=== PATIENT | female | born 1960 | race Caucasian/White ===

== ENCOUNTER 2017-04-11 08:48 | Inpatient (IN) | payer BC ==
--- NOTE | 2017-04-11 09:53 | ED ---
General Adult HPI - General Chief complaint: Psychiatric Symptoms Stated complaint: Petition Time Seen by Provider: 04/11/17 08:57 Source: patient, RN notes reviewed Mode of arrival: ambulatory Limitations: no limitations - History of Present Illness Initial comments: 56-year-old female presents for evaluation of alcohol abuse. Patient was court- ordered to present to the emergency department for psychiatric evaluation. Her believes she is drinking to the point of hurting her self. She denies any suicidal or homicidal ideation. She states she just likes the feeling of having a drink. She does admit to drinking this morning, one alcohol- containing beverage. Patient has no significant past medical history. She also reports that she took a Seroquel this morning. No other drugs of abuse. - Related Data Home Medications Medication Instructions Recorded Confirmed DULoxetine HCL [Cymbalta] 60 mg PO DAILY 04/11/17 04/11/17 Multivitamins, Thera [Multivitamin 1 tab PO DAILY 04/11/17 04/11/17 (formulary)] QUEtiapine [SEROquel] 50 mg PO HS 04/11/17 04/11/17 Allergies Allergy/AdvReac Type Severity Reaction Status Date / Time No Known Allergies Allergy Verified 04/11/17 09:36 Review of Systems ROS Statement: Those systems with pertinent positive or pertinent negative responses have been documented in the HPI. ROS Other: All systems not noted in ROS Statement are negative. Past Medical History Past Medical History: No Reported History History of Any Multi-Drug Resistant Organisms: None Reported Additional Past Surgical History / Comment(s): D/C Past Psychological History: Depression Smoking Status: Former smoker Past Alcohol Use History: Abuse, Daily, Heavy Past Drug Use History: None Reported General Exam Limitations: no limitations General appearance: alert, in no apparent distress Head exam: Present: atraumatic, normocephalic Eye exam: Present: normal appearance, PERRL ENT exam: Present: normal exam, mucous membranes moist Neck exam: Present: normal inspection Respiratory exam: Present: normal lung sounds bilaterally. Absent: respiratory distress Cardiovascular Exam: Present: regular rate, normal rhythm GI/Abdominal exam: Present: soft. Absent: distended, tenderness Extremities exam: Present: normal inspection, full ROM, normal capillary refill. Absent: pedal edema Neurological exam: Present: alert, oriented X3. Absent: motor sensory deficit Psychiatric exam: Present: depressed. Absent: suicidal ideation Skin exam: Present: warm, dry, intact Course Vital Signs 04/11/17 08:56 Temperature 97.8 F Pulse Rate 101 H Respiratory 16 Rate Blood Pressure 141/91 O2 Sat by Pulse 96 Oximetry Medical Decision Making - Medical Decision Making 48 troponin female presenting for evaluation of alcohol abuse and depression. Patient was evaluated by [employer], she does meet inpatient criteria. Patient is agreeable with inpatient treatment, she signed herself in for psychiatric evaluation and treatment. - Lab Data Lab Results 04/11/17 Range/Units 09:12 Urine Opiates Screen Not Detected (NotDetected) Ur Oxycodone Screen Not Detected (NotDetected) Urine Methadone Screen Not Detected (NotDetected) Ur Propoxyphene Screen Not Detected (NotDetected) Ur Barbiturates Screen Not Detected (NotDetected) U Tricyclic Antidepress Detected H (NotDetected) Ur Phencyclidine Scrn Not Detected (NotDetected) Ur Amphetamines Screen Not Detected (NotDetected) U Methamphetamines Scrn Not Detected (NotDetected) U Benzodiazepines Scrn Not Detected (NotDetected) Urine Cocaine Screen Not Detected (NotDetected) U Marijuana (THC) Screen Not Detected (NotDetected) Disposition Clinical Impression: Depression, Alcohol abuse Disposition: ADMITTED IP TO THIS [facility] Condition: Stable Referrals: Stephanie Stock MD [Primary Care Provider] - 1-2 days Decision to Admit Reason: Admit from EC Decision Date: 04/11/17 Decision Time: 12:17
[2017-04-11] MEDS ORDERED: LORazepam 1 MG TAB PO STA (11:38)
[2017-04-11] MEDS ORDERED: MAGNESIUM HYDROXIDE 2,400 MG/10 ML CUP PO PRN (13:57)
[2017-04-11] MEDS ORDERED: ACETAMINOPHEN TAB 325 MG TAB PO PRN (13:57)
[2017-04-11] MEDS ORDERED: MAG HYDROX/AL HYDROX/SIMETH 30 ML CUP PO PRN (13:57)
[2017-04-11] MEDS ORDERED: THIAMINE 100 MG/ML 2 ML VIAL IM STA (14:03)
[2017-04-11 15:23] LABS: Appearance,Urine Cloudy (Clear); Bacteria,Urine Occasional /hpf; Bilirubin,Urine Negative (Negative); Glucose,Urine (UA) Negative (Negative); Ketones,Urine Negative (Negative); Leukocyte Esterase,Urine Negative (Negative); Mucus,Urine Occasional /hpf; Nitrite,Urine Negative (Negative); PH, Urine 5.5 (5.0-8.0); Particle Count 5544; Protein,Urine Trace (Negative); RBC,Urine 2 /hpf (0-5); Squamous Epithelial Cell,Urine 2 /hpf (0-4); UA Billing (MACRO vs. MICRO) MICRO; Urobilinogen,Urine <2.0 mg/dL (<2.0); WBC,Urine 3 /hpf (0-5)
[2017-04-11] MEDS: LORazepam 1 MG TAB PO PRN ×2 (15:23→21:36)
--- NOTE | 2017-04-11 16:15 | P.HP ---
Psychiatric H&P - . H&P Date: 04/11/17 History & Physical: Allergies Allergy/AdvReac Type Severity Reaction Status Date / Time No Known Allergies Allergy Verified 04/11/17 09:36 Vital Signs Temp 97.9 F 04/11/17 14:36 Pulse 111 H 04/11/17 14:36 Resp 15 04/11/17 14:36 BP 128/75 04/11/17 14:36 Pulse Ox 95 04/11/17 14:36 Intake & Output 04/10/17 04/11/17 04/11/17 18:59 06:59 18:59 Weight 56.699 kg Laboratory Last Values Urine Color Yellow 04/11/17 09:12 Urine Appearance Cloudy (Clear) H 04/11/17 09:12 Urine pH 5.5 (5.0-8.0) 04/11/17 09:12 Ur Specific [place] 1.020 (1.001-1.035) 04/11/17 09:12 Urine Protein Trace (Negative) H 04/11/17 09:12 Urine Glucose (UA) Negative (Negative) 04/11/17 09:12 Urine Ketones Negative (Negative) 04/11/17 09:12 Urine Blood Negative (Negative) 04/11/17 09:12 Urine Nitrite Negative (Negative) 04/11/17 09:12 Urine Bilirubin Negative (Negative) 04/11/17 09:12 Urine Urobilinogen <2.0 mg/dL (<2.0) 04/11/17 09:12 Ur Leukocyte Esterase Negative (Negative) 04/11/17 09:12 Urine RBC 2 /hpf (0-5) 04/11/17 09:12 Urine WBC 3 /hpf (0-5) 04/11/17 09:12 Ur Squamous Epith Cells 2 /hpf (0-4) 04/11/17 09:12 Urine Bacteria Occasional /hpf (None) H 04/11/17 09:12 Urine Mucus Occasional /hpf (None) H 04/11/17 09:12 Urine Opiates Screen Not Detected (NotDetected) 04/11/17 09:12 Ur Oxycodone Screen Not Detected (NotDetected) 04/11/17 09:12 Urine Methadone Screen Not Detected (NotDetected) 04/11/17 09:12 Ur Propoxyphene Screen Not Detected (NotDetected) 04/11/17 09:12 Ur Barbiturates Screen Not Detected (NotDetected) 04/11/17 09:12 U Tricyclic Antidepress Detected (NotDetected) H 04/11/17 09:12 Ur Phencyclidine Scrn Not Detected (NotDetected) 04/11/17 09:12 Ur Amphetamines Screen Not Detected (NotDetected) 04/11/17 09:12 U Methamphetamines Scrn Not Detected (NotDetected) 04/11/17 09:12 U Benzodiazepines Scrn Not Detected (NotDetected) 04/11/17 09:12 Urine Cocaine Screen Not Detected (NotDetected) 04/11/17 09:12 U Marijuana (THC) Screen Not Detected (NotDetected) 04/11/17 09:12 04/11/17 15:47 Identification: Patient is a 56-year-old female was brought to the emergency room by the police after her filed a petition for pickup order. Patient had recently been discharged from [facility] where she had been admitted for alcohol use disorder. History of Present Illness: Patient is a 56-year-old female who states that she was released from [facility] on March 05 and had been there for 2 weeks or so, she was admitted for her alcohol use. She states that she also has been diagnosed with depression and anxiety which began in the early 2006 was seen for counseling at [facility] for 1 year and then went to [facility] where she was also treated for depression and anxiety. She went there for a year and was tried on Paxil, Wellbutrin which caused increased agitation, Celexa, Zoloft which caused her to feel groggy and went for 1 year and discontinued her medications. In 2009 she was begun on Effexor by her primary care physician and was continued on 75 mg a day until 2016 when she was admitted to [facility]. She was also placed on BuSpar but didn't like it and stopped taking it. She states that several weeks prior to her admission to [facility] she was placed on Xanax 0.5 mg 4 times a day by her primary care physician. Patient states when she was admitted to [facility] in December for 9-10 days she was placed on an increased dose of Effexor which caused difficulties and was switched to Cymbalta and Antabuse. Patient states she gets discontinued the Antabuse so she could continue drinking and was eventually admitted to [facility]. Patient and Marck Cartwright was placed on Seroquel 50 mg at bedtime and Cymbalta 60 mg in the morning. She states after discharge she canceled her follow-up appointment and her had arranged an intake appointment at the [facility] for alcohol use disorder program and she canceled that as well. Patient states that she has been using alcohol since the age of 11, she states that she used to use alcohol when she would go out and green party when she was younger and prior to 2003 she used little alcohol. She states that in 2003 she began using alcohol to "take the edge off" and was drinking 1 pint of liquor a day since October 2016 prior to her admission to [facility] in December.She states since her discharge from [facility] she has been drinking 6-16 ounce 8% alcohol content beers a day. Patient states that it is easy for her to obtain alcohol as there are two stores with in 2[place]/2 miles of her house where she can buy liquor, she does drink and drive but states she doesn't drink much before she drives. Patient states she has never had any seizures when she has been withdrawing, she denies any delirium but states she does have the shakes and has had blackouts in the past. Patient states that she attends AA meetings on and off has no sponsor and has recently not been attending them. Patient states that she's had depression and anxiety in the past which she describes as panic attacks with an increased heart rate feeling dizzy and hyperventilating which led her to feel depressed as she was wondering when these began if she was going crazy so she could begin to ruminate about her symptoms. She denies any suicidal ideation or suicide attempts in the past and this is what caused her to seek treatment initially. She states she uses use the alcohol to take the edge off of her anxiety symptoms. She states that when she was depressed she was able to work part-time and forced herself to take care of the family. Currently she denies any suicidal ideation and states she' s been drinking throughout the day, her sleep has been disrupted and she is not been caring for her personal hygiene as she has in the past and states that she was cleaning the house but not cooking. She reports that her has difficulty with her alcohol use and is supportive of her trying to stop. Patient is not able to endorse currently or in the past psychotic symptoms, manic symptoms. She is able to endorse symptoms of panic attacks in the past with an increased heart rate, dizziness hyperventilating and states that these lead to her feeling depressed with decreased energy and interest in doing things and the need to force herself to take care of her family when the symptoms began in the early 1999. Past Psychiatric History: Patient was admitted to [place] in 2004 due to her alcohol use. She was admitted to [facility] and [facility] since December. She was treated with Effexor for the last 7 years by her primary care physician and was recently changed to Seroquel 50 mg and Cymbalta 60 mg a day at [facility]. Patient did not follow-up after discharge from [facility] on March 05 canceling her follow-up appointment. Patient received outpatient treatment at [facility] in the early 1999 for 1 year and then subsequently went to [facility] for depression and anxiety the next year. She was tried on multiple medications at that time, Paxil, Wellbutrin was increased agitation, Celexa, Zoloft with grogginess. She states she was tried on BuSpar with little effect. Past Medical/Surgical History:Patient denies any medical problems, states she is status post D&C, she fractured her nose when she was younger and has no ALLERGIES. Patient states that she is menopausal for the last 3 years. Home Medications Medication Instructions Recorded Confirmed DULoxetine HCL [Cymbalta] 60 mg PO DAILY 04/11/17 04/11/17 Multivitamins, Thera [Multivitamin 1 tab PO DAILY 04/11/17 04/11/17 (formulary)] QUEtiapine [SEROquel] 50 mg PO HS 04/11/17 04/11/17 Family History: Patient states that there is no psychiatric history in her family, her mother and father both had alcohol use disorder, her sister who is had an alcohol use disorder, paternal grandfather as well had an alcohol use disorder and she states her brother and other 2 sisters also had alcohol problems in the past or currently sober. She denies any completed suicides in the family. Social History: Patient was born and raised in [place] to parents, her mother is alive and her father is . She has 1 living brother and 2 sisters who are alive and one sister and she was the second oldest of 5 children. She completed high school and went on to college and he completed a bachelor's degree in business management. 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 She states she complained about other coworkers and feels she was let go for this reason. Patient states she's been for 32 years and has 3 children ages 31, 30 and 26. She lives with her and 26-year-old daughter. Her works as an sustain engineer. She denies any history of abuse. Substance Use History: Patient states she began using alcohol at the age of 11 until 2003 only occasionally used it on weekends or when she was at a green party. She states after 2003 she began to drink increasingly more and in October of this year began drinking 1 pint a day of liquor, she states prior to this admission she was drinking 6-16 ounce 8% alcohol content beers a day. Patient states that her longest sobriety was 2 years from [id number]. Patient states she used marijuana as a teen in her early 20s, she tried cocaine several times in college and states that occasionally she is used Vicodin with alcohol as an adult. She quit using tobacco products 4 years ago. Legal History: Patient denies any legal history. Mental Status:Appearance/Attitude: Patient is dressed in a hospital gown, makes good eye contact and is cooperative. Behavior: Patient does not display any psychomotor agitation or retardation. Speech/Language: Patient's speech is spontaneous and of normal volume and rhythm and she is coherent. Thought Process: Patient is goal-directed there is no evidence of circumstantial or tangential thought and she is not expressing any loose associations or flight of ideas. Thought Content: Patient denies any auditory or visual hallucinations and no tactile hallucinations and no paranoid or delusional ideation is elicited. Patient does report should she is feeling anxious, she states that she is not been caring for her personal hygiene at home has not been interested in cooking and states that she only "wanted to be left alone on myself with my drink". Patient states her sleep is been disruptive and she has not been eating well. Suicidal/Homicidal Ideation: Patient denies any suicidal or homicidal ideation at this time. Sensorium/Cognition: Patient is alert and oriented to person, place, and time and her memory is grossly intact. Mood/Affect: Patient's mood is depressed and her affect is slightly blunted. Insight/Judgement: Patient's insight and judgment into her use of alcohol is poor. Intellectual Functioning: Patient's intellectual functioning appears average. Strength/Weaknesses: Patient has a supportive , stable housing/lack of compliance with medication and follow-up Assessment: Patient presents after having had 2 prior admissions for alcohol use disorder for which she did not follow-up with aftercare. Patient was consistently taking her Cymbalta and Seroquel after her last discharge from [facility] canceled her follow-up appointment and canceled an intake appointment at the [facility] for alcohol use disorder. Patient has been treated in the past for depression and anxiety which she states began as panic attacks and then progressed to depression. Prior to her admission the patient states she was eating poorly as she was drinking, her sleep was disrupted she was not taking care of her personal hygiene and wanted to be left alone to sit on her sofa with her drink. Patient is denying any suicidal ideation at this time. Admission Diagnoses: alcohol-induced depressive disorder, Alcohol use disorder, severe; history of panic attacks Plan: Patient was admitted on a voluntary basis, routine laboratory studies were ordered as well as a medical consultation was requested. Patient was placed on routine observation as well as on Ativan as needed to treat her alcohol withdrawal symptoms. Patient was continued on her Cymbalta 60 mg in the morning and her Seroquel was discontinued. Patient was also ordered group and activity therapy and was encouraged to attend and participate. Patient and I discussed the use and side effects of Cymbalta as well as the use of Ativan to treat her withdrawal symptoms. Patient and I also discussed the use of acamprosate and naltrexone and she will consider one of these medications to decrease her urge to drink. Patient I also discussed the long-term consequences of alcohol use. Patient requires inpatient treatment to stabilize her mood, patient's also stated that patient was making suicidal comments at home. 09/14/17 16:14
[2017-04-11] MEDS ORDERED: THIAMINE 100 MG TAB PO SCH (17:00)
[2017-04-11] MEDS ORDERED: PHENobarbital 64.8 MG TAB PO ONE ×2 (18:03→22:03)
[2017-04-11] MEDS ORDERED: QUEtiapine 50 MG TAB PO SCH (21:00)
[2017-04-12] MEDS: LORazepam 1 MG TAB PO PRN ×4 (06:35→23:50)
[2017-04-12 08:38] LABS: Basophils # (A) 0.1 k/uL (0-0.2); Basophils % (A) 1 %; CH 33.9; CHCM 34.2; Eosinophils # (A) 0.1 k/uL (0-0.7); Eosinophils % (A) 1 %; HCT 43.8 % (34.0-46.0); HDW 2.51; HGB 14.9 gm/dL (11.4-16.0); Luc # (Auto) 0.16; Luc % (Auto) 2; Lymphocytes # (A) 1.2 k/uL (1.0-4.8); Lymphocytes % (A) 14 %; MCH 33.9 pg (25.0-35.0); MCV 99.5 fL (80.0-100.0); Mean Platelet Volume 6.5; Monocytes # (A) 0.4 k/uL (0-1.0); Monocytes % (A) 5 %; Neutrophils # (A) 6.8 k/uL (1.3-7.7); Neutrophils % (A) 78 %; RBC 4.41 m/uL (3.80-5.40); WBC 8.7 k/uL (3.8-10.6); WBC (Perox) 9.16
[2017-04-12 08:43] LABS: Anion Gap 10 mmol/L; Blood Urea Nitrogen 17 mg/dL (7-17); Carbon Dioxide 30 mmol/L (22-30); Chloride 97 mmol/L (98-107); Glucose 134 mg/dL (74-99); Potassium 3.8 mmol/L (3.5-5.1); Sodium 137 mmol/L (137-145)
[2017-04-12 08:44] LABS: ALT 202 U/L (9-52); AST 224 U/L (14-36); Alkaline Phosphatase 137 U/L (38-126); Calcium 9.2 mg/dL (8.4-10.2); Non-African American GFR(MDRD) >60 (>60 ml/min/1.73 sqM); Total Bilirubin 0.9 mg/dL (0.2-1.3); Total Protein 7.2 g/dL (6.3-8.2)
[2017-04-12] MEDS: DULoxetine HCL 60 MG CAPSULE.DR PO SCH (09:17)
--- NOTE | 2017-04-12 10:09 | P.PN ---
Progress Note - Text Interval History: Patient is a 56-year-old female who was admitted yesterday and was seen today and states that she was up and down most of the night not sleeping well and is feeling tired and shaky. She reports taking Ativan once this morning and feeling better after taking it. She also took her Cymbalta 60 mg this morning. Patient and I discussed her history of alcohol use and she states that she did begin at the age of 11 took a drink at that time and states that she liked the way it made her feel. Patient and I had discussed yesterday trying naltrexone or acamprosate and she is agreeable to a trial of naltrexone. Patient reports that she is still feeling depressed, tired poor sleep and at times anxious. She denies any current suicidal ideation. Patient has not been attending groups that she does not physically feel well enough to at this time she states. Mental Status: Appearance/Attitude: Patient is appropriately dressed, makes good eye contact and is cooperative. Behavior: Patient does not display any psychomotor agitation or retardation. Speech/Language: Patient's speech is spontaneous and of normal volume and rhythm and she is coherent. Thought Process: Patient is goal-directed, there is no evidence of loose associations flight of ideas and she is not circumstantial or tangential. Thought Content: Patient denies any auditory or visual hallucinations, no tactile hallucinations and no paranoid or delusional ideation was elicited. Patient reports her sleep is still disruptive, she feels tired with no motivation and continues to report shakiness at times. Patient states her appetite is fair and she continues to feel tired with little energy. Suicidal/Homicidal Ideation: Patient denies any current suicidal or homicidal ideation. Sensorium/Cognition: Patient is alert and oriented to person, place, and time and her memory is grossly intact. Mood/Affect: Patient's mood is depressed and her affect is slightly blunted. Insight/Judgement: Patient's insight and judgment are fair. Assessment: Patient is reporting some symptoms of withdrawal, her vital signs have been fairly stable however her liver enzymes are all elevated. Patient reports her sleep is still disruptive and she is still feeling depressed, tired and at times shaky. Patient is no longer expressing any suicidal ideation. Patient I had a long discussion regarding her family history of alcohol use disorder on both sides, she was able to discuss how she has been in denial for a number of years, was unable to understand her sister's use of alcohol and the long-term side effects of alcohol use. Plan: Patient will continue on Cymbalta 60 mg in the morning to target her depression and anxiety, she will continue on Ativan as needed for withdrawal symptoms. I will repeat her metabolic panel on Saturday to see if her liver enzymes have decreased, I suspect they are secondary to her alcohol use and at that time if they have decreased I will begin naltrexone. patient continues to require hospitalization to stabilize her mood.
[2017-04-12] MEDS: MULTIVITAMINS, THERA 1 EACH TAB PO SCH (11:58)
[2017-04-12] MEDS ORDERED: PHENobarbital 64.8 MG TAB PO SCH (14:03)
[2017-04-12] MEDS ORDERED: PHENobarbital 32.4 MG TAB PO SCH (14:03)
--- NOTE | 2017-04-12 18:16 | CONS ---
CONSULTATION REASON FOR CONSULTATION: Medical management of alcohol abuse and withdrawal symptoms. HISTORY OF PRESENTING ILLNESS: Ms. Mohr is a 56-year-old female with a known history of alcohol abuse. She was brought to the hospital for further evaluation of alcohol abuse and also psychiatric evaluation. Patient apparently has been drinking heavily for the past 2 months and has commented at home about trying to hurt herself. Patient's family brought her to the hospital. Otherwise, patient currently is more awake and oriented. Denied any complaints of chest pain or shortness of breath. No nausea, vomiting, or abdominal pain. The patient has been drinking more than a pint a day for the past 2 months. The patient does have a recent admission to an alcohol abuse program on March 05 and was discharged home. The patient already takes Seroquel for her depression. Otherwise, denied any smoking or drug abuse. No fever. No chills. No recent illnesses or sick contacts at home. REVIEW OF SYSTEMS: CONSTITUTIONAL: No fever. No chills. No weakness. No malaise. RESPIRATORY: No cough or sputum production. CARDIOVASCULAR: No chest pain. No shortness of breath. No leg swelling. No orthopnea. No PND. RESPIRATORY: No cough or sputum production. ABDOMEN: No nausea, vomiting, abdominal pain. GENITOURINARY: No dysuria or hematuria. NEUROLOGIC: Patient does have dizziness. No headache. No lightheadedness. No weakness. ENDOCRINE : No heat or cold intolerance. PSYCHIATRIC: Depressed. SKIN: Negative. MUSCULOSKELETAL: Negative. All other 14-point review of systems negative except for the above. PAST MEDICAL HISTORY: Alcohol abuse and depression. PAST SURGICAL HISTORY: D&C. FAMILY HISTORY: No family history of psychiatric problems or depression. The patient does have family history of alcohol abuse. SOCIAL HISTORY: Patient is a former smoker. Patient does not drink currently more than a pint a day. Denied any marijuana. Denied any drugs or IVDU. ALLERGIES: NO KNOWN DRUG ALLERGIES. HOME MEDICATIONS: Home medications include: 1. Cymbalta. 2. Multivitamin. 3. Seroquel. PHYSICAL EXAMINATION: A 56-year-old female lying in the bed comfortably. Awake, alert, oriented x3. She appears to be in no distress. VITAL SIGNS: Blood pressure is 117/69, pulse rate 94, respiration 16, temperature afebrile. Pulse ox is 97% on room air. HEENT: Atraumatic, normocephalic. NECK: Supple. No JVD. CVS EXAM: S1, S2 heard. No murmurs. No gallop. No rub. LUNGS: Bilateral air entry is present. No wheezing. No crackles Non-labored breathing. ABDOMEN: Soft, nontender. Bowel sounds are present. PLATE STACKER: Awake, alert and oriented x3. No focal deficit. EXTREMITIES: No edema. Pulses palpable bilaterally. No clubbing or cyanosis. PSYCHIATRIC: Cooperative. Denied any suicidal ideation now. Patient seems depressed. LABORATORY DATA: WBC 8.7, hemoglobin 14.9, platelets 381. Sodium 137, potassium 3.8, chloride 97, bicarb 30, BUN 17, creatinine 0.86. Blood sugar is 134. AST is 224, ALT 202, alkaline phosphatase 137, albumin 4.1. TSH 1.04, within normal limits. UA negative for infection. UDS is positive for tricyclic antidepressants. IMPRESSION: 1. Acute alcohol withdrawal symptoms. 2. Suicidal ideation/comments at home. 3. Severe alcohol abuse with more than a pint a day. 4. Recent admission to alcohol abuse program. 5. History of panic disorder. 6. Essential tremor. DISCUSSION AND PLAN: Patient will be continued on Ativan IV q.6 hourly p.r.n. for alcohol withdrawal symptoms. Replace electrolytes. Continue with the multivitamins and thiamine. Follow up closely. Continue with Cymbalta as per psychiatric recommendations. Will continue the current management. Further recommendations based on the clinical course. Thank you for your consult. MMVLADIMIR / KATHYN: [id number] /
[2017-04-12] MEDS ORDERED: IBUPROFEN 800 MG TAB PO PRN (21:43)
[2017-04-13] MEDS: LORazepam 1 MG TAB PO PRN ×3 (06:13→18:30)
[2017-04-13] MEDS: DULoxetine HCL 60 MG CAPSULE.DR PO SCH (08:18)
[2017-04-13] MEDS: MULTIVITAMINS, THERA 1 EACH TAB PO SCH (08:18)
[2017-04-13] MEDS: THIAMINE 100 MG TAB PO SCH (12:44)
--- NOTE | 2017-04-13 12:47 | P.PN ---
Progress Note - Text Interval history: The patient is found in her room she follows me to an interview room. The patient was admitted to the mental health unit on a pickup order. She is diagnosed with depression and alcohol use disorder. She is on Cymbalta 60 mg daily Ativan as needed to prevent alcohol withdrawal symptoms. It appears there is a plan to initiate naltrexone once the liver enzymes have begun to normalize. The patient speaks at length regarding her alcohol use and how it has caused dysfunction. Her insight into the situation seems to be improving. She has no questions or concerns regarding her medications. Mental status exam: The patient is alert she is dressed in her own clothing eye contact is appropriate. She does demonstrate some very mild psychomotor slowing. Speech is fluent spontaneous nonpressured. She reports that her mood is improving she is reporting no suicidal or homicidal ideation intent or plan. She is endorsing no hallucinations or specific delusions there is no evidence of psychosis. She does not appear hypomanic or manic. She demonstrates no tremor. She demonstrates no verbal or physical aggressiveness. She is oriented to person place and date. Affect remains constricted. Plan: Depression and anxiety alcohol use disorder, the patient will continue on her current medications labs are reviewed vital signs reviewed. We will continue to monitor her for safety she is encouraged to participate in the milieu. Lab work is ordered for Saturday regarding her liver enzymes.
[2017-04-14 06:31] VITALS: RESP 16
[2017-04-14] MEDS: LORazepam 1 MG TAB PO PRN ×3 (07:11→20:06)
[2017-04-14] MEDS: DULoxetine HCL 60 MG CAPSULE.DR PO SCH (08:46)
[2017-04-14] MEDS: THIAMINE 100 MG TAB PO SCH (12:13)
[2017-04-14] MEDS: MULTIVITAMINS, THERA 1 EACH TAB PO SCH (12:13)
--- NOTE | 2017-04-14 16:43 | P.PN ---
Progress Note - Text Interval history: The patient is found in the hallway she follows me to an interview room. She reports that her mood is been more tearful today and she feels more "melancholic". She does have a visit with her spouse last evening. She asks several questions about alcohol use disorder as a disease. She had received input from her spouse that his belief was she should simply choose not to use it. We discussed that she may have a genetic susceptibility and alcohol may affect her differently than others but he is correct that she does fact have a choice whether she uses or not. We discussed the possibility of her participating in an inpatient chemical dependency treatment and she we'll give that some consideration. We discussed the importance of participating in AA meetings and having a sponsor. We reviewed her labs specifically her elevated liver enzyme values. We again discussed naltrexone both in oral form and the injectable form. Mental status exam: The patient is alert she presents with adequate hygiene grooming she endorses a melancholic mood her affect is tearful she is cooperative. She is reporting no acute suicidal or homicidal ideation she endorses no auditory or visual hallucinations or specific delusions, there is no evidence of psychosis. She does not appear hypomanic or manic. She demonstrates no physical tremor. Insight and judgment improving. Thought process is free of any tangential thinking loose associations or flight of ideas. She demonstrates no verbal or physical aggressiveness. Hygiene grooming are good. She is wearing makeup today. Plan: The patient will continue on her current medication I will reduce the frequency of the Ativan to 3 times a day as needed. Vital signs are reviewed and they are within normal limits. She is encouraged to continue participating in the milieu we will continue to monitor her for safety. She is encouraged to give more consideration to inpatient chemical dependency treatment or at least outpatient AA meetings along with other outpatient mental health services.
[2017-04-15 08:27] LABS: ALT 155 U/L (9-52); AST 137 U/L (14-36); Alkaline Phosphatase 120 U/L (38-126); Anion Gap 6 mmol/L; Blood Urea Nitrogen 9 mg/dL (7-17); Calcium 8.7 mg/dL (8.4-10.2); Carbon Dioxide 28 mmol/L (22-30); Chloride 103 mmol/L (98-107); Glucose 93 mg/dL (74-99); Non-African American GFR(MDRD) >60 (>60 ml/min/1.73 sqM); Potassium 4.1 mmol/L (3.5-5.1); Sodium 137 mmol/L (137-145); Total Bilirubin 0.5 mg/dL (0.2-1.3); Total Protein 6.6 g/dL (6.3-8.2)
[2017-04-15] MEDS: DULoxetine HCL 60 MG CAPSULE.DR PO SCH (08:28)
[2017-04-15] MEDS: LORazepam 1 MG TAB PO PRN (08:28)
[2017-04-15] MEDS: NALTREXONE HCL 50 MG TAB PO SCH (09:21)
--- NOTE | 2017-04-15 10:19 | P.PN ---
Progress Note - Text Interval History: Patient is a 56-year-old female who is seen today she states that she is feeling guilty and remorseful about how she was acting over the summer in treating her family. She states that she is not feeling suicidal or depressed but is sad about her behavior patient states that she is sleeping and eating well. Patient states that she is tolerating the Cymbalta well and has continued to request Ativan for feeling anxious and not having withdrawal symptoms. Patient and I discussed starting naltrexone and she was agreeable with this. Patient states she is still contemplating whether she wants to go to inpatient rehab or outpatient therapy. Patient states that she had family visits this weekend and they went well. Mental Status: Appearance/Attitude: Patient is neatly dressed, good eye contact and is cooperative. Behavior: Patient does not display any psychomotor agitation or retardation. Speech/Language: Patient's speech is spontaneous and of normal volume and rhythm and she is coherent. Thought Process: Patient is goal-directed, there is no evidence of circumstantial or tangential thought and no loose associations or flight of ideas. Thought Content: Patient denies any auditory or visual hallucinations and no paranoid or delusional ideation was elicited. Patient states she is feeling guilty and remorseful about how she was acting this summer in treating her family. She states that she is anxious at times but is unable to define what that means. Patient states that she is no longer having difficulty eating or sleeping. Suicidal/Homicidal Ideation: Patient denies any current suicidal or homicidal ideation Sensorium/Cognition: Patient is alert and oriented to person, place, time and her memory is grossly intact. Mood/Affect: Patient's mood is tearful when discussing how she was acting the summer, she is pleasant and her affect is appropriate to her mood. Insight/Judgement: Patient's insight and judgment are fair. Assessment: Patient is no longer having any symptoms of withdrawal, her vital signs are stable and there is no evidence of any shaking or tremors. Patient is sleeping and eating well. Patient is no longer feeling suicidal or depressed. Patient is remorseful and feeling guilty about her behavior over the summer. Patient was agreeable to starting naltrexone but is still uncertain about whether she wants to go to inpatient alcohol rehab after her discharge from the hospital. Plan: Patient will continue on Cymbalta 60 mg to target her depression and anxiety and I will discontinue the Ativan as the patient is no longer having any withdrawal symptoms. Patient and I discussed the use and side effects of naltrexone and she will begin 50 mg today. Patient and I discussed considering inpatient alcohol rehab on the patient will consider it she is to have a family meeting today. Patient should be ready for discharge in the next several days.
[2017-04-15] MEDS: MULTIVITAMINS, THERA 1 EACH TAB PO SCH (12:09)
[2017-04-15] MEDS: THIAMINE 100 MG TAB PO SCH (12:09)
[2017-04-15] MEDS: MELATONIN 5 MG TABLET PO SCH (20:54)
[2017-04-16] MEDS: NALTREXONE HCL 50 MG TAB PO SCH (09:17)
[2017-04-16] MEDS: DULoxetine HCL 60 MG CAPSULE.DR PO SCH (09:18)
[2017-04-16] MEDS: THIAMINE 100 MG TAB PO SCH (12:10)
[2017-04-16] MEDS: MULTIVITAMINS, THERA 1 EACH TAB PO SCH (12:10)
[2017-04-16] MEDS: hydrOXYzine PAMOATE 25 MG CAP PO PRN ×2 (12:11→19:18)
--- NOTE | 2017-04-16 12:54 | P.PN ---
Progress Note - Text Interval History: Patient is a 56-year-old female who was seen this morning and states that she is not doing really well because she can't stop crying. She states that she is remorseful and sad about how she spent the summer and ignored her family. She states that she is not happy. Patient states that she couldn't get out of the cycle she was in at home and is upset that she was telling everyone to leave her alone. Patient states that when she gone to inpatient alcohol rehab in the past she had left after 1 or 2 weeks and it never completed the programs. Patient stated that she was feeling anxious and not attending groups because of her anxiety was questioning whether her anxiety was secondary to the ReVia. Patient states that she slept about 6-7 hours last night and her appetite is good and she denies any suicidal ideation. I spoke with the patient's at her request regarding his concerns about her aftercare as well as discussing whether ECT would be an appropriate treatment for her. Mental Status: Appearance/Attitude: Patient is appropriately and neatly dressed , makes good eye contact and is cooperative. Behavior: Patient was tearful throughout the early part of the interview due to her feeling remorseful and sad about how she spent the summer, she did not display any psychomotor agitation or retardation. Speech/Language: Patient's speech is spontaneous and of normal volume and rhythm and she is coherent. Thought Process: Patient is goal-directed and there is no evidence of loose associations or flight of ideas she is not circumstantial or tangential. Thought Content: Patient denies any auditory or visual hallucinations no delusions or paranoid ideation were elicited. Patient talks about feeling sad and remorseful about how she spent the summer and treated her family. She states she isn't happy in her sleep is not as restless it should be. She is reporting feeling anxious today and wonders if it secondary to the ReVia. Patient states that she is eating fine Suicidal/Homicidal Ideation: Patient denies any current suicidal or homicidal ideation. Sensorium/Cognition: Patient is alert and oriented to person, place, time and her memory is grossly intact. Mood/Affect: Patient's mood is tearful, sad and her affect is appropriate. Insight/Judgement: Patient's insight and judgment are fair. Assessment: Patient is now reporting feeling more anxious and wonders if it secondary to the ReVia, she is also tearful about how she spent the summer and how she treated her family. Patient and I discussed at length that while she is using alcohol benefits of the antidepressant medication are greatly reduced. Patient was encouraged to continue with the ReVia to see if the anxiety that she thinks is secondary to will decrease the longer she is on the medication. Patient remains ambivalent about returning to inpatient alcohol rehab programs, concerned about the length of time she will be absent from her family. Plan: Patient will continue on Cymbalta 60 mg in the morning and ReVia 50 mg a day as well as melatonin 5 mg at bedtime. Patient was also given Vistaril 25 mg 3 times a day as needed for her anxiety. Patient was encouraged to consider returning to a rehab program and completing. Patient and I discussed discharge plans for tomorrow. Patient and I discussed that the full benefit of the Cymbalta would not be reached until she had been on it for more than a month without using any alcohol and she was encouraged to continue the ReVia to see if the anxiety that she felt secondary to it would decrease.
[2017-04-16] MEDS: MELATONIN 5 MG TABLET PO SCH (20:34)
[2017-04-17 06:08] VITALS: BP 124/66; PULSE 77; TEMP 97.9
[2017-04-17] MEDS: DULoxetine HCL 60 MG CAPSULE.DR PO SCH (08:55)
[2017-04-17] MEDS: hydrOXYzine PAMOATE 25 MG CAP PO PRN (08:56)
--- NOTE | 2017-04-17 09:44 | P.DS ---
Providers Date of admission: 04/11/17 13:46 Expected date of discharge: 04/17/17 Attending physician: Gale Harvey MD Consults: 04/11/17 13:57 Consult Physician Routine Consulting Provider: Franky Moffett Consult Reason/Comments: follow up H & P Do you want consulting provider notified?: Yes Primary care physician: Stephanie Stock [facility] Course: Discharge Diagnoses: Alcohol-induced depressive disorder, alcohol use disorder, severe; other specified anxiety disorder Reason for Admission: Patient is a 56-year-old female was brought to the emergency room by the police after her filed a petition or pickup order. Patient had recently been discharged from [facility] where she had been admitted for alcohol use disorder. Patient states that she was released from [facility] on March 05 and had been there for less than 2 weeks and was admitted for her alcohol use. She states that she has been diagnosed with depression and anxiety in the past which began in early 2006 and she was being seen at [facility] for 1 year and then went to [facility]. Patient has been treated in the past and was admitted to [facility] in 2017. She was there in December for 9-10 days and she was switched to Cymbalta which she has continued to this point. She was also begun on Antabuse which she discontinued so she could continue drinking and was eventually admitted to [facility]. Patient upon discharge disc continued her follow-up treatment as well as canceling an intake appointment at the [facility]. Patient states that she began using alcohol at the age of 11 and was using it socially until 2003 when she began using alcohol to "take the edge off" and was drinking 1 pint of liquor a day since October 2016. She stated that since her discharge from [facility] she has been drinking 6-16 ounce 8% alcohol content beers a day. Patient does drink and drive, to usually the liquor store which is 2-1/2 miles away from her home. Patient denied any seizures or delirium during her withdrawals in the past but has had blackouts. Patient also described depression and anxiety, she states that she began having panic attacks at some point in the past with increased heart rate, feeling dizzy and hyperventilating which led her to feel depressed and she was wondering if she was going crazy. She states when she uses alcohol he takes the edge off her anxiety symptoms. Patient has also recently lost her job. Patient states at home she wanted to just be "left alone on the couch with her drink". She is not been caring for her personal hygiene, not cooking and states she was drinking throughout the day. Patient has been tried on multiple medications in the past, Celexa, Zoloft , Paxil, Wellbutrin and BuSpar. She was most recently treated with Cymbalta 60 mg. Patient was admitted to [place] in 2004 due to her alcohol use, and 2 admissions in since December at [facility]. Hospital Course: Patient was admitted on a voluntary basis, routine laboratory studies were performed, medical consultation was obtained the patient was placed on routine precautions. Patient was also ordered group and activity therapy and was continued on her Cymbalta 60 mg in the morning. Patient was also on Ativan for alcohol withdrawal symptoms. Patient was begun on ReVia 50 mg a day and she stated that she had increasing anxiety after she had been on the medication for several days. Patient was also placed on Vistaril 25 mg 3 times a day as needed to control her anxiety. Patient was also given melatonin 5 mg at bedtime to assist with her sleep. Patient was able to state that her alcohol use had been at a problem and she was discussing various rehabilitation programs. Patient wished the ReVia to be discontinued due to the anxiety that it been causing she did not feel that the melatonin had been beneficial for her sleep. Patient reported that she was feeling numb, the Vistaril at been helpful for her anxiety and she declined a trial of a Campral stating that she was going to an inpatient long-term rehab facility in [place]. Patient denied suicidal ideation during her hospital stay but was expressing her remorse and shame about her behavior over the summer and the way she been treating her family.patient was sleeping fairly well and eating well and was no longer having any symptoms of withdrawal and felt that she was ready for discharge. Discharge Mental Status:Appearance/Attitude: Patient is appropriately dressed, makes good eye contact and is cooperative. Behavior: Patient does not display any psychomotor agitation or retardation. Speech/Language: Patient's speech is spontaneous, normal volume and rhythm and she is coherent. Thought Process: Patient is goal-directed, is no evidence of circumstantial or tangential thought and no loose associations or flight of ideas Thought Content: Patient denies any auditory or visual hallucinations and no delusions or paranoid ideation were elicited. Patient reports that she is feeling empty today, feels that the ReVia has caused her to have some anxiety and wishes it to be discontinued. Patient states that she is sleeping fairly well and her appetite is good. Suicidal/Homicidal Ideation: Patient denied any current suicidal or homicidal ideation. Sensorium/Cognition: Patient is alert and oriented to person, place, and time and her memory is grossly intact. Mood/Affect: Patient's mood is slightly depressed and her affect is appropriate. Insight/Judgement: Patient's insight and judgment are fair. Laboratory Last Values WBC 8.7 k/uL (3.8-10.6) 04/12/17 08:14 RBC 4.41 m/uL (3.80-5.40) 04/12/17 08:14 Hgb 14.9 gm/dL (11.4-16.0) 04/12/17 08:14 Hct 43.8 % (34.0-46.0) 04/12/17 08:14 MCV 99.5 fL (80.0-100.0) 04/12/17 08:14 MCH 33.9 pg (25.0-35.0) 04/12/17 08:14 MCHC 34.0 g/dL (31.0-37.0) 04/12/17 08:14 RDW 13.0 % (11.5-15.5) 04/12/17 08:14 Plt Count 381 k/uL (150-450) 04/12/17 08:14 Neutrophils % 78 % 04/12/17 08:14 Lymphocytes % 14 % 04/12/17 08:14 Monocytes % 5 % 04/12/17 08:14 Eosinophils % 1 % 04/12/17 08:14 Basophils % 1 % 04/12/17 08:14 Neutrophils # 6.8 k/uL (1.3-7.7) 04/12/17 08:14 Lymphocytes # 1.2 k/uL (1.0-4.8) 04/12/17 08:14 Monocytes # 0.4 k/uL (0-1.0) 04/12/17 08:14 Eosinophils # 0.1 k/uL (0-0.7) 04/12/17 08:14 Basophils # 0.1 k/uL (0-0.2) 04/12/17 08:14 Sodium 137 mmol/L (137-145) 04/15/17 07:30 Potassium 4.1 mmol/L (3.5-5.1) 04/15/17 07:30 Chloride 103 mmol/L (98-107) 04/15/17 07:30 Carbon Dioxide 28 mmol/L (22-30) 04/15/17 07:30 Anion Gap 6 mmol/L 04/15/17 07:30 BUN 9 mg/dL (7-17) 04/15/17 07:30 Creatinine 0.65 mg/dL (0.52-1.04) 04/15/17 07:30 Est GFR (MDRD) Af Amer >60 (>60 ml/min/1.73 sqM) 04/15/17 07:30 Est GFR (MDRD) Non-Af >60 (>60 ml/min/1.73 sqM) 04/15/17 07:30 Glucose 93 mg/dL (74-99) 04/15/17 07:30 Calcium 8.7 mg/dL (8.4-10.2) 04/15/17 07:30 Total Bilirubin 0.5 mg/dL (0.2-1.3) 04/15/17 07:30 AST 137 U/L (14-36) H 04/15/17 07:30 ALT 155 U/L (9-52) H 04/15/17 07:30 Alkaline Phosphatase 120 U/L (38-126) 04/15/17 07:30 Total Protein 6.6 g/dL (6.3-8.2) 04/15/17 07:30 Albumin 3.7 g/dL (3.5-5.0) 04/15/17 07:30 TSH 1.040 mIU/L (0.465-4.680) 04/12/17 08:14 Urine Color Yellow 04/11/17 09:12 Urine Appearance Cloudy (Clear) H 04/11/17 09:12 Urine pH 5.5 (5.0-8.0) 04/11/17 09:12 Ur Specific [place] 1.020 (1.001-1.035) 04/11/17 09:12 Urine Protein Trace (Negative) H 04/11/17 09:12 Urine Glucose (UA) Negative (Negative) 04/11/17 09:12 Urine Ketones Negative (Negative) 04/11/17 09:12 Urine Blood Negative (Negative) 04/11/17 09:12 Urine Nitrite Negative (Negative) 04/11/17 09:12 Urine Bilirubin Negative (Negative) 04/11/17 09:12 Urine Urobilinogen <2.0 mg/dL (<2.0) 04/11/17 09:12 Ur Leukocyte Esterase Negative (Negative) 04/11/17 09:12 Urine RBC 2 /hpf (0-5) 04/11/17 09:12 Urine WBC 3 /hpf (0-5) 04/11/17 09:12 Ur Squamous Epith Cells 2 /hpf (0-4) 04/11/17 09:12 Urine Bacteria Occasional /hpf (None) H 04/11/17 09:12 Urine Mucus Occasional /hpf (None) H 04/11/17 09:12 Urine Opiates Screen Not Detected (NotDetected) 04/11/17 09:12 Ur Oxycodone Screen Not Detected (NotDetected) 04/11/17 09:12 Urine Methadone Screen Not Detected (NotDetected) 04/11/17 09:12 Ur Propoxyphene Screen Not Detected (NotDetected) 04/11/17 09:12 Ur Barbiturates Screen Not Detected (NotDetected) 04/11/17 09:12 U Tricyclic Antidepress Detected (NotDetected) H 04/11/17 09:12 Ur Phencyclidine Scrn Not Detected (NotDetected) 04/11/17 09:12 Ur Amphetamines Screen Not Detected (NotDetected) 04/11/17 09:12 U Methamphetamines Scrn Not Detected (NotDetected) 04/11/17 09:12 U Benzodiazepines Scrn Not Detected (NotDetected) 04/11/17 09:12 Urine Cocaine Screen Not Detected (NotDetected) 04/11/17 09:12 U Marijuana (THC) Screen Not Detected (NotDetected) 04/11/17 09:12 Risk Assessment: Patient's risk for suicidal behavior is moderate due to her history of alcohol use, anxiety and depression Discharge Plan: Patient states that she is completed and over the phone intake assessment at a [facility] in [facility] and her will be driving her there today after discharge. Patient will begin prescriptions for Cymbalta 60 mg in the morning and Vistaril 25 mg 3 times a day as needed for anxiety, she states that she does not wish to continue the ReVia and does not want a prescription for melatonin. Patient was encouraged to complete the program. Patient did not wish to try Campral as she states that this program has a holistic approach. Patient was encouraged to remain sober. Patient Condition at Discharge: Stable Plan - Discharge Summary New Discharge Prescriptions: New hydrOXYzine PAMOATE [Vistaril] 25 mg PO Q8HR PRN #20 cap PRN Reason: Anxiety Thiamine [Vitamin B-1] 100 mg PO DAILY@1200 #28 tab Continue Multivitamins, Thera [Multivitamin (formulary)] 1 tab PO DAILY DULoxetine HCL [Cymbalta] 60 mg PO DAILY #14 Discontinued QUEtiapine [SEROquel] 50 mg PO HS Discharge Medication List Multivitamins, Thera [Multivitamin (formulary)] 1 tab PO DAILY 04/11/17 [History ] DULoxetine HCL [Cymbalta] 60 mg PO DAILY #14 04/17/17 [Rx] Thiamine [Vitamin B-1] 100 mg PO DAILY@1200 #28 tab 04/17/17 [Rx] hydrOXYzine PAMOATE [Vistaril] 25 mg PO Q8HR PRN #20 cap 04/17/17 [Rx] Follow up Appointment(s)/Referral(s): intake, intake [Other] - 04/17/17 2:00 pm Stephanie Stock MD [Primary Care Provider] - 1-2 days Patient Instructions/Handouts: Depression (GEN), Abuse of Alcohol (GEN), Suicide Prevention for Adults (GEN) Activity/Diet/Wound Care/Special Instructions: Activity and diet as tolerated. Avoid the use of street drugs and alcohol. Take all medications as prescribed. When you are in need of refills on your medications please contact your medical provider and/or outpatient psychiatrist to have this done. Please go to scheduled outpatient appointment for aftercare treatment. If symptoms return or become worse call the crisis line at [phone] and/or go to the nearest emergency room for an evaluation. Discharge Disposition: HOME SELF-CARE
[2017-04-17] MEDS: NALTREXONE HCL 50 MG TAB PO SCH (09:57)
[2017-04-17] MEDS: MULTIVITAMINS, THERA 1 EACH TAB PO SCH (11:42)
[2017-04-17] MEDS: THIAMINE 100 MG TAB PO SCH (11:42)
== END 2017-04-17 12:02 | disposition home or self-care (01) | DRG 897 ==
LOC: EC 08:48 → 3MHU 13:46
PROVIDERS: ADMIT Psychiatry & Neurology Psychiatry; ATTEND Psychiatry & Neurology Psychiatry
DX: F10.24 Alcohol dependence with alcohol-induced mood disorder (principal); F10.239 Alcohol dependence with withdrawal, unspecified; F41.0 Panic disorder [episodic paroxysmal anxiety]; G25.0 Essential tremor; Z79.899 Other long term (current) drug therapy; Z56.0 Unemployment, unspecified; Z87.891 Personal history of nicotine dependence; Z81.1 Family history of alcohol abuse and dependence
CPT/HCPCS: 80053; 80306; 81001; 82075; 84443; 85025; 99285

== ENCOUNTER 2017-10-07 15:24 | Inpatient (IN) | payer BC ==
--- NOTE | 2017-10-07 17:06 | ED ---
General Adult HPI - General Chief complaint: Psychiatric Symptoms Stated complaint: mental health/detox Time Seen by Provider: 10/07/17 16:30 Source: patient, family, RN notes reviewed Mode of arrival: ambulatory Limitations: no limitations - History of Present Illness Initial comments: Patient is a pleasant 56-year-old female presenting to the emergency department with concerns for alcohol problems. Patient has been drinking heavily again for the past couple of weeks. Patient believes she has had approximately a pint of vodka as well as a couple ounces, last drink was around noon. Patient admits to feeling depressed. Patient admits to having thoughts of going to sleep and not waking up. Patient does not have a specific suicidal plan. No homicidal thoughts. Patient denies any hallucinations. No physical complaints. Patient requests to allow her son to go to by her alcohol and bring it into the hospital. - Related Data Home Medications Medication Instructions Recorded Confirmed Multivitamins, Thera [Multivitamin 1 tab PO DAILY 04/11/17 10/08/17 (formulary)] Previous Rx's Medication Instructions Recorded Thiamine [Vitamin B-1] 100 mg PO DAILY@1200 #28 tab 04/17/17 OXcarbazepine [Trileptal] 300 mg PO BID 30 Days #60 tab 10/11/17 QUEtiapine [SEROquel] 25 mg PO HS 30 Days #30 tab 10/11/17 Allergies Allergy/AdvReac Type Severity Reaction Status Date / Time No Known Allergies Allergy Verified 10/08/17 03:11 Review of Systems ROS Statement: Those systems with pertinent positive or pertinent negative responses have been documented in the HPI. ROS Other: All systems not noted in ROS Statement are negative. Constitutional: Denies: fever Eyes: Denies: eye pain ENT: Denies: ear pain Respiratory: Denies: cough Cardiovascular: Denies: chest pain Endocrine: Denies: fatigue Gastrointestinal: Denies: abdominal pain Genitourinary: Denies: dysuria Musculoskeletal: Denies: back pain Skin: Denies: rash Neurological: Denies: headache Psychiatric: Reports: depression Past Medical History Past Medical History: No Reported History Additional Past Medical History / Comment(s): ETOH abuse. History of Any Multi-Drug Resistant Organisms: None Reported Past Surgical History: No Surgical Hx Reported Additional Past Surgical History / Comment(s): D/C, colonoscopy, septal surgery Past Anesthesia/Blood Transfusion Reactions: No Reported Reaction Past Psychological History: Depression Smoking Status: Former smoker Past Alcohol Use History: Abuse, Daily, Heavy Past Drug Use History: None Reported - Past Family History Father Family Medical History: CVA/TIA Additional Family Medical History / Comment(s): Father of septicemia at the age of 69yrs. He had had a CVA and then had complications from that. Mother Family Medical History: No Reported History Additional Family Medical History / Comment(s): Mother is healthy and is 81 yrs old. General Exam Limitations: no limitations General appearance: alert, in no apparent distress Head exam: Present: atraumatic Eye exam: Present: normal appearance, PERRL, EOMI ENT exam: Present: normal oropharynx Neck exam: Present: normal inspection Respiratory exam: Present: normal lung sounds bilaterally Cardiovascular Exam: Present: regular rate, normal rhythm GI/Abdominal exam: Present: soft. Absent: tenderness Extremities exam: Present: normal inspection Neurological exam: Present: alert Psychiatric exam: Present: depressed Skin exam: Present: normal color Course Vital Signs 10/07/17 10/07/17 15:36 22:18 Temperature 98.1 F 98.1 F Pulse Rate 95 106 H Respiratory 18 18 Rate Blood Pressure 131/78 158/95 O2 Sat by Pulse 97 97 Oximetry Medical Decision Making - Lab Data Result diagrams: 10/08/17 09:19 10/08/17 09:19 Lab Results 10/07/17 10/07/17 Range/Units 17:11 17:11 Urine Color Light Yellow Urine Appearance Clear (Clear) Urine pH 5.0 (5.0-8.0) Ur Specific [place] 1.008 (1.001-1.035) Urine Protein Negative (Negative) Urine Glucose (UA) Negative (Negative) Urine Ketones Negative (Negative) Urine Blood Negative (Negative) Urine Nitrite Negative (Negative) Urine Bilirubin Negative (Negative) Urine Urobilinogen <2.0 (<2.0) mg/dL Ur Leukocyte Esterase Negative (Negative) Urine Opiates Screen Not Detected (NotDetected) Ur Oxycodone Screen Not Detected (NotDetected) Urine Methadone Screen Not Detected (NotDetected) Ur Propoxyphene Screen Not Detected (NotDetected) Ur Barbiturates Screen Not Detected (NotDetected) U Tricyclic Antidepress Not Detected (NotDetected) Ur Phencyclidine Scrn Not Detected (NotDetected) Ur Amphetamines Screen Not Detected (NotDetected) U Methamphetamines Scrn Not Detected (NotDetected) U Benzodiazepines Scrn Not Detected (NotDetected) Urine Cocaine Screen Not Detected (NotDetected) U Marijuana (THC) Screen Not Detected (NotDetected) Disposition Clinical Impression: Depression, Alcohol abuse Disposition: TRANSFER TO PSYCH HOSP/UNIT
[2017-10-07 17:28] LABS: Amphetamine Screen,Urine Not Detected (NotDetected); Barbiturate Screen,Urine Not Detected (NotDetected); Benzodiazepines Screen,Urine Not Detected (NotDetected); Cocaine Screen,Urine Not Detected (NotDetected); Methadone Screen, Urine Not Detected (NotDetected); Opiate Screen,Urine Not Detected (NotDetected); Oxycodone Screen, Urine Not Detected (NotDetected); Phencyclidine Screen,Urine Not Detected (NotDetected); Tricyclic Antidepressant,Urine Not Detected (NotDetected); Urn Cannabinoid Scrn Not Detected (NotDetected)
[2017-10-07] MEDS ORDERED: LORazepam 1 MG TAB PO STA (20:34)
[2017-10-07] MEDS ORDERED: ACETAMINOPHEN TAB 325 MG TAB PO PRN (22:26)
[2017-10-07] MEDS ORDERED: MAGNESIUM HYDROXIDE 2,400 MG/10 ML CUP PO PRN (22:26)
[2017-10-07] MEDS ORDERED: MAG HYDROX/AL HYDROX/SIMETH 30 ML CUP PO PRN (22:26)
[2017-10-07] MEDS ORDERED: LORazepam 2 MG/ML INJ IM PRN (22:32)
[2017-10-07 22:44] LABS: Appearance,Urine Clear (Clear); Bilirubin,Urine Negative (Negative); Blood,Urine Negative (Negative); Color,Urine Light Yellow; Glucose,Urine (UA) Negative (Negative); Ketones,Urine Negative (Negative); Leukocyte Esterase,Urine Negative (Negative); Nitrite,Urine Negative (Negative); Protein,Urine Negative (Negative); Specific Gravity,Urine 1.008 (1.001-1.035); Urobilinogen,Urine <2.0 mg/dL (<2.0)
[2017-10-07] MEDS ORDERED: MELATONIN 5 MG TABLET PO SCH (22:45)
[2017-10-07] MEDS: MELATONIN 3 MG TABLET PO SCH (23:40)
--- NOTE | 2017-10-08 00:26 | P.MDCNMH ---
History of Present Illness H&P Date: 10/08/17 Chief Complaint: Excessive drinking Is a 56-year-old female with past medical history of alcoholism who came to MRSA department complaining that she's been drinking excessively and actively seeking help. Patient states that lately should be having stressful situations and been feeling depressed and anxious, with poor appetite and difficulty sleeping, decreased desire for usual activities. No suicidal thoughts or ideation. She started drinking again excessively almost daily up to a pint of vodka. Patient reports previously being hospitalized and going to alcohol rehab programs. She denies any history of seizures or delirium tremens or any significant withdrawals. Denies any history of liver problems. She did have elevated liver enzymes in March of last year. She denies any other medical problems including diabetes or hypertension. Her last drink was yesterday. She does not report any significant cravings or feeling shaky or anxious or sweating. Review of Systems Constitutional: Reports poor appetite, Denies fatigue, Denies fever, Denies lethargy, Denies malaise, Denies night sweats Eyes: denies blurred vision Ears, nose, mouth and throat: Denies dysphagia, Denies headache, Denies odynophagia Cardiovascular: Denies chest pain, Denies dyspnea on exertion, Denies edema, Denies high blood pressure, Denies leg edema, Denies lightheadedness Respiratory: Denies cough, Denies cough with sputum, Denies dyspnea Gastrointestinal: Reports loss of appetite, Denies abdominal pain, Denies bloating, Denies change in bowel habits, Denies diarrhea, Denies dyspepsia, Denies jaundice Genitourinary: Denies difficulty voiding, Denies dysuria Musculoskeletal: Denies hot joints, Denies morning stiffness, Denies muscle cramps, Denies muscle weakness Integumentary: Denies pruritus, Denies rash Neurological: Denies balance difficulties, Denies change in mentation, Denies change in speech, Denies confusion, Denies double vision, Denies gait dysfunction, Denies headaches Psychiatric: Reports anxiety, Reports change in appetite, Reports change in sleep habits, Reports depression, Reports difficulty concentrating Endocrine: Denies cold intolerance Past Medical History Past Medical History: No Reported History Additional Past Medical History / Comment(s): ETOH abuse. History of Any Multi-Drug Resistant Organisms: None Reported Past Surgical History: No Surgical Hx Reported Additional Past Surgical History / Comment(s): D/C, colonoscopy, septal surgery Past Anesthesia/Blood Transfusion Reactions: No Reported Reaction Past Psychological History: Depression Smoking Status: Former smoker Past Alcohol Use History: Abuse, Daily, Heavy Past Drug Use History: None Reported - Past Family History Father Family Medical History: CVA/TIA Additional Family Medical History / Comment(s): Father of septicemia at the age of 69yrs. He had had a CVA and then had complications from that. Mother Family Medical History: No Reported History Additional Family Medical History / Comment(s): Mother is healthy and is 81 yrs old. Medications and Allergies Home Medications Medication Instructions Recorded Confirmed Type Multivitamins, Thera [Multivitamin 1 tab PO DAILY 04/11/17 10/07/17 History (formulary)] Thiamine [Vitamin B-1] 100 mg PO DAILY@1200 #28 tab 04/17/17 10/07/17 Rx Melatonin 10 mg PO HS 10/07/17 10/07/17 History Protriptyline HCl [Vivactil] 5 mg PO BID 10/07/17 10/07/17 History Allergies Allergy/AdvReac Type Severity Reaction Status Date / Time No Known Allergies Allergy Verified 10/07/17 17:33 Physical Exam Vitals: Vital Signs Temp Pulse Resp BP Pulse Ox 10/07/17 22:18 98.1 F 106 H 18 158/95 97 10/07/17 15:36 98.1 F 95 18 131/78 97 Intake and Output 10/07/17 10/07/17 10/08/17 14:59 22:59 06:59 Other: Weight 56.699 kg Patient Weight 10/08/17 06:59 Weight 56.699 kg - Constitutional General appearance: cooperative, no no acute distress - EENT Eyes: anicteric sclerae, EOMI, PERRLA - Neck Neck: no lymphadenopathy, normal ROM, no thyromegaly - Respiratory Respiratory: bilateral: CTA, negative: diminished, dullness, rales, rhonchi, wheezing - Cardiovascular Rhythm: regular Heart sounds: normal: S1, S2 - Gastrointestinal General gastrointestinal: no hepatomegaly, normal bowel sounds, soft, no tenderness - Integumentary Integumentary: no rash - Neurologic Neurologic: CNII-XII intact - Musculoskeletal Musculoskeletal: gait normal - Psychiatric Psychiatric: A&O x's 3 Cranial Nerve Examination - Cranial Nerves Cranial Nerve II- Optic: Intact Cranial Nerve III- Oculomotor: Intact Cranial Nerve IV- Trochlear: Intact Cranial Nerve V- Trigeminal: Intact Cranial Nerve - Abducens: Intact Cranial Nerve VII- Facial: Intact Cranial Nerve VIII- Auditory: Intact Cranial Nerve IX- Glossopharyngeal: Intact Cranial Nerve X- Vagus: Intact Cranial Nerve XI- Accessory: Intact Cranial Nerve XII- Hypoglossal: Intact Assessment and Plan (1) Elevated liver enzymes Narrative/Plan: Noted on previous admission CMP is pending We will reevaluate once results available If still elevated we will consider obtaining ultrasound and viral hepatitis screening as well Current Visit: No Status: Acute Priority: Medium Code(s): R74.8 - ABNORMAL LEVELS OF OTHER SERUM ENZYMES SNOMED Code(s): 732761399 (2) Alcohol abuse Narrative/Plan: Monitor for withdrawal loss CIWA Vitamin supplementation Current Visit: Yes Status: Acute Priority: High Code(s): F10.10 - ALCOHOL ABUSE, UNCOMPLICATED SNOMED Code(s): 08606841 (3) Depression Narrative/Plan: Per psychiatry Current Visit: No Status: Acute Priority: High Code(s): F32.9 - MAJOR DEPRESSIVE DISORDER, SINGLE EPISODE, UNSPECIFIED SNOMED Code(s): 78094449
[2017-10-08] MEDS: LORazepam 1 MG TAB PO PRN ×3 (02:02→20:53)
[2017-10-08 03:11] VITALS: BMI 21.2
[2017-10-08] MEDS: MULTIVITAMINS, THERA 1 EACH TAB PO SCH (08:29)
[2017-10-08 09:52] LABS: Albumin 4.6 g/dL (3.5-5.0); Calcium 9.8 mg/dL (8.4-10.2); Potassium 4.3 mmol/L (3.5-5.1); Total Bilirubin 0.9 mg/dL (0.2-1.3); Total Protein 7.8 g/dL (6.3-8.2)
[2017-10-08 10:16] LABS: Basophils % (A) 1 %; Eosinophils % (A) 0 %; HCT 43.2 % (34.0-46.0); HGB 14.6 gm/dL (11.4-16.0); Lymphocytes % (A) 22 %; MCH 32.3 pg (25.0-35.0); MCHC 33.8 g/dL (31.0-37.0); MCV 95.5 fL (80.0-100.0); Mean Platelet Volume 6.5; Monocytes # (A) 0.4 k/uL (0-1.0); Monocytes % (A) 4 %; Neutrophils # (A) 6.2 k/uL (1.3-7.7); Neutrophils % (A) 71 %; Platelet Count 306 k/uL (150-450); RBC 4.52 m/uL (3.80-5.40); RDW 12.1 % (11.5-15.5); WBC 8.7 k/uL (3.8-10.6)
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
[2017-10-08] MEDS: OXcarbazepine 300 MG TAB PO SCH ×2 (11:47→20:49)
[2017-10-08] MEDS: THIAMINE 100 MG TAB PO SCH (11:47)
[2017-10-08] MEDS: MELATONIN 3 MG TABLET PO SCH (20:51)
[2017-10-08] MEDS: QUEtiapine 100 MG TAB PO SCH (20:51)
[2017-10-09] MEDS: MULTIVITAMINS, THERA 1 EACH TAB PO SCH (08:31)
[2017-10-09] MEDS: OXcarbazepine 300 MG TAB PO SCH ×2 (08:31→20:41)
[2017-10-09] MEDS: LORazepam 1 MG TAB PO PRN (08:33)
--- NOTE | 2017-10-09 12:05 | P.PN ---
Progress Note - Text Progress Note Date: 10/09/17 Patient is rather sleepy today. She took melatonin in addition to Seroquel last night and got a few doses of Ativan. She agreed to discontinue her melatonin and not to take Ativan unless she has a real withdrawal symptoms from alcohol so that she can be awake and alert. She continues to deny suicidal thoughts and did not show any suicidal behavior. This is a white ambulatory female with good hygiene. He is somewhat sleepy but she is able to engage in good conversation, alert etc. Her mood varies from euthymic to cheerful. Affect is appropriate to thought content. Denies suicidal and homicidal ideas. Denies hallucinations and delusional thinking. She is well oriented with good memory concentration etc. Plan: Discontinue melatonin. Patient agreed not to take Ativan unless she is having actual withdrawal symptoms. Consider lowering Seroquel to 50 mg at bedtime if she still feels until about 4:00 this afternoon.
[2017-10-09] MEDS: THIAMINE 100 MG TAB PO SCH (12:09)
[2017-10-09] MEDS: QUEtiapine 100 MG TAB PO SCH (20:41)
[2017-10-10] MEDS: MULTIVITAMINS, THERA 1 EACH TAB PO SCH (08:34)
[2017-10-10] MEDS: OXcarbazepine 300 MG TAB PO SCH ×2 (08:34→20:51)
--- NOTE | 2017-10-10 10:50 | P.PN ---
Progress Note - Text Progress Note Date: 10/10/17 Patient was seen for a follow-up examination. She does not feel as sleepy as she did yesterday. She said she did not take when necessary Ativan but she still feels a little sluggish and asked if her Seroquel could be changed or decreased to 50 mg she was taking in the past. After much discussion about the pros and cons of changing to another medication and decreasing it to 50 mg at bedtime, it was agreed to decrease Seroquel to 75 mg at bedtime. She had several questions about alcoholism and bipolar disorder, antidepressants for bipolar disorder etc. and etc. She was counseled in detail about symptoms of bipolar disorder, comorbid conditions, the research recommendations for bipolar disorder treatment etc. This is a white ambulatory female with good hygiene. She is polite and friendly and cooperative. She does not show any psychomotor agitation or retardation. Her speech is spontaneous relevant and goal-directed. Her mood is euthymic to cheerful and affect is appropriate. She denies suicidal and homicidal ideas. She denies hallucinations and delusional thinking. She is well oriented with adequate memory concentration general fund of knowledge etc. Plan: Continue Trileptal, decrease Seroquel to 75 mg at bedtime and continue therapies.
[2017-10-10] MEDS ORDERED: THIAMINE 100 MG TAB ONE (12:00)
[2017-10-10] MEDS: THIAMINE 100 MG TAB PO SCH (13:35)
[2017-10-10] MEDS: LORazepam 1 MG TAB PO PRN (20:53)
[2017-10-10] MEDS ORDERED: QUEtiapine 25 MG TAB PO SCH (21:00)
[2017-10-11 07:03] VITALS: BP 128/80; PULSE 88; RESP 14; TEMP 98
[2017-10-11] MEDS: THIAMINE 100 MG TAB PO SCH (08:56)
[2017-10-11] MEDS: MULTIVITAMINS, THERA 1 EACH TAB PO SCH (08:56)
[2017-10-11] MEDS: OXcarbazepine 300 MG TAB PO SCH (08:56)
[2017-10-11] MEDS: LORazepam 1 MG TAB PO PRN ×2 (08:58→16:35)
--- NOTE | 2017-10-11 09:33 | P.DS ---
Providers Date of admission: 10/07/17 22:11 Expected date of discharge: 10/11/17 Attending physician: Tawana Parker Consults: 10/07/17 22:26 Consult Physician Routine Consulting Provider: Carlos Morton Consult Reason/Comments: H&P for mental health admission Do you want consulting provider notified?: Yes Primary care physician: Stephanie Stock [facility] Course: Patient had physical examination psychiatric evaluation and psychosocial evaluation. After psychiatric examination patient agreed to try Trileptal and Seroquel for mood stabilization. She was receiving Ativan for withdrawal symptoms/anxiety. She attended her group and other therapies. She socialized with peers and interacted with staff members appropriately. She reported of being too sleepy on 100 mg Seroquel. She was counseled and agreed to decrease or stop her Ativan and also stop melatonin. The next day she continued to report of being sleepy and not feeling levelheaded on Seroquel so it was decreased to 75 mg at bedtime. Even today she continues to report of not feeling well in her head and it was agreed to stop it. However after further discussion she wanted to stay on 25 mg at bedtime and to discuss with her outpatient psychiatrist to consider other mood stabilizers if she continues to have problems with Seroquel. Condition on discharge this is a white ambulatory female with good hygiene. She is polite friendly and cooperative. She does not show any psychomotor agitation or retardation. Her speech is spontaneous relevant and goal- directed. Her mood is euthymic to cheerful and affect is appropriate. She continues to deny suicidal and homicidal thoughts. She also denies hallucinations and delusional thinking. She is well oriented with good memory concentration etc. her insight and judgment have improved. Diagnosis on discharge: Bipolar 1 disorder most recent episode unspecified F 31.9 Alcohol use disorder severe F 10.20 NKDA Hyper lipidemia Elevated liver enzymes. Patient was advised to take her medications as prescribed, not to drink alcohol or use drugs, seek outpatient counseling regarding alcohol and coping skills in addition to psychiatric follow-up, not to drive or operate missionary if she feels sleepy, to call her therapist if she gets suicidal thoughts and to go to ER if she cannot get hold of her therapist. She agreed with all these recommendations. Plan - Discharge Summary Discharge Rx Participant: No New Discharge Prescriptions: New OXcarbazepine [Trileptal] 300 mg PO BID 30 Days #60 tab QUEtiapine [SEROquel] 25 mg PO HS 30 Days #30 tab Continue Multivitamins, Thera [Multivitamin (formulary)] 1 tab PO DAILY Thiamine [Vitamin B-1] 100 mg PO DAILY@1200 #28 tab Discontinued Protriptyline HCl [Vivactil] 5 mg PO BID Melatonin 10 mg PO HS Discharge Medication List Multivitamins, Thera [Multivitamin (formulary)] 1 tab PO DAILY 04/11/17 [History ] Thiamine [Vitamin B-1] 100 mg PO DAILY@1200 #28 tab 04/17/17 [Rx] OXcarbazepine [Trileptal] 300 mg PO BID 30 Days #60 tab 10/11/17 [Rx] QUEtiapine [SEROquel] 25 mg PO HS 30 Days #30 tab 10/11/17 [Rx] Follow up Appointment(s)/Referral(s): Geovany Morocho Dr [Other] - 10/17/17 5:30 am (10/17/17 at 5:30pm with Dr. Morocho) Stephanie Stock MD [Primary Care Provider] - 1-2 days
[2017-10-11] MEDS ORDERED: QUEtiapine 25 MG TAB PO SCH (21:00)
== END 2017-10-11 17:56 | disposition home or self-care (01) | DRG 885 ==
LOC: EC 15:24 → 3MHU 22:11
PROVIDERS: ADMIT Psychiatry & Neurology Psychiatry; ATTEND Psychiatry & Neurology Psychiatry
DX: F31.9 Bipolar disorder, unspecified (principal); E78.5 Hyperlipidemia, unspecified; F10.20 Alcohol dependence, uncomplicated; F41.9 Anxiety disorder, unspecified; Z82.3 Family history of stroke; Z82.49 Family history of ischemic heart disease and other diseases of the circulatory system; Z87.891 Personal history of nicotine dependence
CPT/HCPCS: 80053; 80061; 80306; 81003; 82075; 83036; 84443; 85025; 99285

== ENCOUNTER 2021-07-12 11:25 | Inpatient (IN) | payer BC ==
--- NOTE | 2021-07-12 12:21 | ED ---
General Adult HPI - General Chief complaint: Psychiatric Symptoms Stated complaint: Mental Health Time Seen by Provider: 07/12/21 11:37 Source: EMS Mode of arrival: EMS - History of Present Illness Initial comments: Dictation was produced using [employer] dictation software. please excuse any grammatical, word or spelling errors. Chief Complaint: 60-year-old female presents emergency department for alcoholism and depression History of Present Illness: Patient is 60-year-old female she has past medical history of alcoholism and alcohol withdrawal. She's been drinking large amounts of alcohol over the last several days. She takes as much as 2 L of vodka on a daily basis. She has had rales in the past. She states that she is very depressed. States that she is doesn't see remaining of living anymore. She's been also drinking mouthwash and anything that she get her hands on with alcohol-containing substances. She has no medical complaints currently. is at the bedside who also helps provide history present illness. Last alcoholic intake was morning. The ROS documented in this emergency department record has been reviewed and confirmed by me. Those systems with pertinent positive or negative responses have been documented in the HPI. All other systems are other negative and/or noncontributory. PHYSICAL EXAM: General Impression: Alert and oriented x3, not in acute distress HEENT: Normocephalic atraumatic, extra-ocular movements intact, pupils equal and reactive to light bilaterally, mucous membranes moist. Cardiovascular: Heart regular rate and rhythm Chest: Able to complete full sentences, no retractions, no tachypnea Abdomen: abdomen soft, non-tender, non-distended, no organomegaly Musculoskeletal: Pulses present and equal in all extremities, no peripheral edema Motor: no focal deficits noted Neurological: CN II-XII grossly intact, no focal motor or sensory deficits noted Skin: Intact with no visualized rashes Psych: Normal affect and mood ED course: 60-year-old female presents to the emergency department for depression, perhaps suicidal ideation with no specific plan and acute alcohol intoxication. Vital signs upon arrival shows findings within acceptable limits. Laboratory evaluation obtained. Mild stress leukocytosis 11.7. Metabolic panel shows findings within acceptable limits. Alcohol level is 179. Patient engages shows signs of withdrawal. Given patient's size and O much she drinks was con cerned the patient could have worsening withdrawals. Patient is agreeable for admission. Every 4 hour CiWA scale ordered. Patient also ordered for variable dose Ativan. EKG interpretation: Ventricular rate default 2, sinus tachycardia, FL interval 142, QRS 86, QTC 4:30. No FL prolongation, no QTC prolongation, no ST or T-wave changes noted. Overall, this EKG is unremarkable - Related Data Home Medications Medication Instructions Recorded Confirmed Multivitamins, Thera [Multivitamin 1 tab PO DAILY 04/11/17 10/08/17 (formulary)] Previous Rx's Medication Instructions Recorded Thiamine [Vitamin B-1] 100 mg PO DAILY@1200 #28 tab 04/17/17 OXcarbazepine [Trileptal] 300 mg PO BID 30 Days #60 tab 10/11/17 QUEtiapine [SEROquel] 25 mg PO HS 30 Days #30 tab 10/11/17 Allergies Allergy/AdvReac Type Severity Reaction Status Date / Time No Known Allergies Allergy Verified 07/12/21 11:47 Review of Systems ROS Statement: Those systems with pertinent positive or pertinent negative responses have been documented in the HPI. ROS Other: All systems not noted in ROS Statement are negative. Past Medical History Past Medical History: No Reported History Additional Past Medical History / Comment(s): ETOH abuse. History of Any Multi-Drug Resistant Organisms: None Reported Past Surgical History: No Surgical Hx Reported Additional Past Surgical History / Comment(s): D/C, colonoscopy, septal surgery Past Anesthesia/Blood Transfusion Reactions: No Reported Reaction Past Psychological History: Anxiety, Depression Smoking Status: Former smoker Past Alcohol Use History: Abuse, Daily, Heavy Past Drug Use History: None Reported - Past Family History Father Family Medical History: CVA/TIA Additional Family Medical History / Comment(s): Father of septicemia at the age of 69yrs. He had had a CVA and then had complications from that. Mother Family Medical History: No Reported History Additional Family Medical History / Comment(s): Mother is healthy and is 81 yrs old. Course Vital Signs 07/12/21 11:32 Temperature 97.2 F L Pulse Rate 101 H Respiratory 18 Rate Blood Pressure 173/91 O2 Sat by Pulse 95 Oximetry Medical Decision Making - Lab Data Result diagrams: 07/12/21 12:23 07/12/21 12:23 Lab Results 07/12/21 07/12/21 Range/Units 12:23 12:23 WBC 11.7 H (3.8-10.6) k/uL RBC 4.51 (3.80-5.40) m/uL Hgb 14.9 (11.4-16.0) gm/dL Hct 44.7 (34.0-46.0) % MCV 99.0 (80.0-100.0) fL MCH 33.1 (25.0-35.0) pg MCHC 33.4 (31.0-37.0) g/dL RDW 13.3 (11.5-15.5) % Plt Count 425 (150-450) k/uL MPV 6.7 Neutrophils % 81 % Lymphocytes % 13 % Monocytes % 4 % Eosinophils % 0 % Basophils % 1 % Neutrophils # 9.5 H (1.3-7.7) k/uL Lymphocytes # 1.5 (1.0-4.8) k/uL Monocytes # 0.5 (0-1.0) k/uL Eosinophils # 0.0 (0-0.7) k/uL Basophils # 0.1 (0-0.2) k/uL Sodium 136 L (137-145) mmol/L Potassium 4.3 (3.5-5.1) mmol/L Chloride 94 L (98-107) mmol/L Carbon Dioxide 26 (22-30) mmol/L Anion Gap 16 mmol/L BUN 19 H (7-17) mg/dL Creatinine 0.68 (0.52-1.04) mg/dL Est GFR (CKD-EPI)AfAm >90 (>60 ml/min/1.73 sqM) Est GFR (CKD-EPI)NonAf >90 (>60 ml/min/1.73 sqM) Glucose 138 H (74-99) mg/dL Calcium 8.8 (8.4-10.2) mg/dL Total Bilirubin 0.4 (0.2-1.3) mg/dL AST 39 H (14-36) U/L ALT 30 (4-34) U/L Alkaline Phosphatase 127 H (38-126) U/L Total Protein 7.6 (6.3-8.2) g/dL Albumin 4.5 (3.5-5.0) g/dL Salicylates <1.0 mg/dL Acetaminophen <10.0 ug/mL Serum Alcohol 179 mg/dL Disposition Clinical Impression: Alcohol withdrawal Disposition: ADMITTED IP TO THIS HOSP Condition: Fair Referrals: Stephanie Stock MD [Primary Care Provider] - 1-2 days
[2021-07-12] MEDS ORDERED: LORazepam 2 MG/ML INJ IV PRN (12:31)
[2021-07-12] MEDS ORDERED: THIAMINE 100 MG/ML 2 ML VIAL IM STA (12:31)
[2021-07-12] MEDS: LORazepam 2 MG/ML INJ IV PRN ×3 (13:05→18:07)
[2021-07-12 13:21] LABS: Basophils # (A) 0.1 k/uL (0-0.2); Basophils % (A) 1 %; Eosinophils % (A) 0 %; HCT 44.7 % (34.0-46.0); HGB 14.9 gm/dL (11.4-16.0); Lymphocytes # (A) 1.5 k/uL (1.0-4.8); Lymphocytes % (A) 13 %; MCH 33.1 pg (25.0-35.0); MCHC 33.4 g/dL (31.0-37.0); Mean Platelet Volume 6.7; Monocytes # (A) 0.5 k/uL (0-1.0); Monocytes % (A) 4 %; Neutrophils # (A) 9.5 k/uL (1.3-7.7); Neutrophils % (A) 81 %; Platelet Count 425 k/uL (150-450); RBC 4.51 m/uL (3.80-5.40); RDW 13.3 % (11.5-15.5); WBC 11.7 k/uL (3.8-10.6)
[2021-07-12 13:34] LABS: ALT 30 U/L (4-34); AST 39 U/L (14-36); Acetaminophen <10.0 ug/mL; African American GFR (CKD) >90 (>60 ml/min/1.73 sqM); Albumin 4.5 g/dL (3.5-5.0); Alkaline Phosphatase 127 U/L (38-126); Anion Gap 16 mmol/L; Blood Urea Nitrogen 19 mg/dL (7-17); Calcium 8.8 mg/dL (8.4-10.2); Carbon Dioxide 26 mmol/L (22-30); Chloride 94 mmol/L (98-107); Glucose 138 mg/dL (74-99); Non-African American GFR(CKD) >90 (>60 ml/min/1.73 sqM); Potassium 4.3 mmol/L (3.5-5.1); Salicylate <1.0 mg/dL; Sodium 136 mmol/L (137-145); Total Bilirubin 0.4 mg/dL (0.2-1.3); Total Protein 7.6 g/dL (6.3-8.2)
[2021-07-12 13:56] LABS: Alcohol 179 mg/dL
[2021-07-12] MEDS ORDERED: NALOXONE 0.4 MG/ML 1 ML VIAL IV PRN (14:20)
[2021-07-12] MEDS: SODIUM CHLORIDE 0.9% 1,000 ML IV SCH (15:24)
[2021-07-12] MEDS: THIAMINE 100 MG TAB PO SCH (17:59)
[2021-07-12] MEDS ORDERED: LACTULOSE 20 GM/30 ML CUP PO PRN (18:04)
[2021-07-12] MEDS ORDERED: ACETAMINOPHEN TAB 325 MG TAB PO PRN (18:04)
[2021-07-12] MEDS ORDERED: CALCIUM CARBONATE 500 MG CHEWABLE PO PRN (18:04)
--- NOTE | 2021-07-12 21:40 | P.HPIM ---
History of Present Illness H&P Date: 07/12/21 Chief Complaint: Excess alcohol intake This is a 60-year-old patient who follows Dr. Stephanie Stock. Patient long- standing history of drinking alcohol. She is also going to [place] in the past. Some short periods of being sober. But basically has been drinking alcohol for a protracted period. She drinks called boys and also does walk up. She now presents to the ER feeling that she might kill herself. Drinking alcohol. Feels a little depressed and low. Does not eat too well. Is somewhat constipated as she does not eat well. Appetite is not good. Tired rundown. Has a history of bipolar 1. Patient's somewhat drowsy. When able to give some history. Review of systems: GEN.: Tired EYES: None HEENT: None NECK: None RESPIRATORY: None CARDIOVASCULAR: None GASTROINTESTINAL: Constipation GENITOURINARY: None MUSCULOSKELETAL: None LYMPHATICS: None HEMATOLOGICAL: None PSYCHIATRY: Depressed NEUROLOGICAL: None Social history: . Patient smoked for about 40 years about 15 years ago. 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 Family history: Father had stroke Physical examination: VITAL SIGNS: 97.2, 120, 18, 168/86, 95% room air GENERAL: BMI 22.3, laying in bed, tired slightly lethargic, spider nevi. EYES: Pupils equal. Conjunctiva normal. HEENT: External appearance of nose and ears normal, oral cavity grossly normal. NECK: JVD not raised; masses not palpable. HEART: First and second heart sounds are normal; no edema. LUNGS: Respiratory rate normal; decreased breath sounds. ABDOMEN: Soft, nontender, liver spleen not palpable, no masses palpable. PSYCH: Lethargic but able to answer simple questions. Depressed appearingl. NEUROLOGICAL: Cranial nerves grossly intact; no facial asymmetry, power and sensation grossly intact. LYMPHATICS: No lymph nodes palpable in the axilla and neck INVESTIGATIONS, reviewed in the clinical context: White count 9.7 hemoglobin 14.9 platelets 425 sodium 136 potassium 4.3 BUN 19 creatinine 0.68 blood glucose 138 Serum osmolality 332 AST 39 ALT 30 Salicylates less than 1 acetaminophen less than 10 serum alcohol 179 Coronavirus [PCR]: Noninfected EKG tracing personally reviewed by me-sinus rhythm. Rate 102 Assessment and plan: -Acute alcohol intoxication Patient has a sitter -Alcohol use disorder -Early alcohol withdrawal Valium 2 mg 3 times a day. CIWA scale. -Bipolar 1 with severe depression Psychiatry consulted. Patient has a sitter. -Alcoholic hepatitis Follow-up with GI outpatient Valium 2 mg daily. CIWA scale. Sitter. Consult psychiatry. D5 0.45 IV fluids. Discussed with patient. Past Medical History Past Medical History: No Reported History Additional Past Medical History / Comment(s): ETOH abuse. History of Any Multi-Drug Resistant Organisms: None Reported Past Surgical History: No Surgical Hx Reported Additional Past Surgical History / Comment(s): D/C, colonoscopy, septal surgery Past Anesthesia/Blood Transfusion Reactions: No Reported Reaction Past Psychological History: Anxiety, Depression Smoking Status: Former smoker Past Alcohol Use History: Abuse, Daily, Heavy Past Drug Use History: None Reported - Past Family History Father Family Medical History: CVA/TIA Additional Family Medical History / Comment(s): Father of septicemia at the age of 69yrs. He had had a CVA and then had complications from that. Mother Family Medical History: No Reported History Additional Family Medical History / Comment(s): Mother is healthy and is 81 yrs old. Medications and Allergies Home Medications Medication Instructions Recorded Confirmed Type PARoxetine [Paxil] 20 mg PO DAILY 07/12/21 07/12/21 History Progesterone, Micronized 200 mg PO HS 07/12/21 07/12/21 History [Progesterone] Allergies Allergy/AdvReac Type Severity Reaction Status Date / Time No Known Allergies Allergy Verified 07/12/21 14:49 Physical Exam Vitals: Vital Signs Temp Pulse Pulse Resp BP BP Pulse Ox 07/12/21 20:00 98.2 F 105 H 18 148/84 94 L 07/12/21 18:55 126 H 18 168/86 95 07/12/21 11:32 97.2 F L 101 H 18 173/91 95 Intake and Output 07/12/21 07/12/21 07/12/21 06:59 14:59 22:59 Other: Weight 58.967 kg Results CBC & Chem 7: 07/12/21 12:23 07/12/21 12:23 Labs: Abnormal Lab Results - Last 24 Hours (Table) 07/12/21 07/12/21 Range/Units 12:23 12:23 WBC 11.7 H (3.8-10.6) k/uL Neutrophils # 9.5 H (1.3-7.7) k/uL Sodium 136 L (137-145) mmol/L Chloride 94 L (98-107) mmol/L BUN 19 H (7-17) mg/dL Glucose 138 H (74-99) mg/dL Osmolality 332 H* (280-301) mosm/kg AST 39 H (14-36) U/L Alkaline Phosphatase 127 H (38-126) U/L
[2021-07-12] MEDS: METOPROLOL TARTRATE 12.5 MG TAB PO SCH (22:17)
[2021-07-12] MEDS: PROGESTERONE MICRONIZED 200 MG PO SCH (22:19)
[2021-07-12] MEDS: DEXTROSE 5%-0.45% NACL 1,000 ML IV SCH (22:21)
[2021-07-12] MEDS: diazePAM 2 MG TAB PO SCH (22:54)
[2021-07-13] MEDS: LORazepam 2 MG/ML INJ IV PRN ×2 (03:50→10:19)
[2021-07-13] MEDS: diazePAM 2 MG TAB PO SCH ×3 (08:04→22:23)
[2021-07-13] MEDS: METOPROLOL TARTRATE 12.5 MG TAB PO SCH ×3 (08:04→22:23)
[2021-07-13] MEDS: THIAMINE 100 MG TAB PO SCH ×2 (08:04→18:07)
[2021-07-13] MEDS: ENOXAPARIN 40 MG/0.4 ML SYRINGE SQ SCH (08:05)
[2021-07-13] MEDS: PARoxetine 20 MG TAB PO SCH (08:05)
[2021-07-13] MEDS: DEXTROSE 5%-0.45% NACL 1,000 ML IV SCH ×2 (08:06→15:34)
[2021-07-13 12:57] VITALS: RESP 16
[2021-07-13] MEDS ORDERED: FLUoxetine HCL 10 MG CAP PO STA (13:43)
[2021-07-13] MEDS ORDERED: GABAPENTIN 300 MG CAP PO STA (13:44)
--- NOTE | 2021-07-13 14:04 | P.CN ---
Psychiatric Consult - . Consult date: 07/13/21 Consult:: 07/13/21 14:03 IDENTIFYING DATA: This patient is a , employed, 60-year-old female with a significant history of depression, anxiety, and alcohol use disorder presented to the hospital for excessive alcohol intake. HISTORY OF PRESENT ILLNESS: The patient presented to the hospital on 07/12/2021, brought to the emergency department with her by her side for chief complaint of excessive alcohol use. The patient was started on Valium for management of acute alcohol withdrawal and due to her significant psychiatric history with bipolar disorder and severe depression, psychiatry has been consulted and the patient was placed with a sitter. Serum alcohol was noted to be 179. Patient also presented with elevated transaminases. Upon evaluation by the psychiatric provider, the patient reports significant history of depression, anxiety, and alcohol use disorder. She reports that she decided to come to the hospital after "going on a hart for the last week." She reports that she has been drinking up to 2 pints of hard liquor per day. The patient reports that she goes through periods where she would go on a hart and periods of sobriety. She reports that during these periods of sobriety she would have the occasional alcoholic beverage. She expresses some acute stressors including her [id number] passing away a couple weeks ago. The patient reports that she has been dealing with increasing panic attacks. She describes these as periods where she would feel an impending sense of doom, palpitations, perspiration, and fear of the next attack. She reports that this is pushed her to increase her alcohol use. In regards to depressive symptoms, the patient is vehemently denying any suicidal or homicidal ideation, intention, and/or plan. She is not reporting any auditory or visual hallucinations. The patient denies any significant symptoms of depression although when she was on her hart she did report decreased appetite and difficulty with sleep. The patient does express that she is uncertain whether she actually wants to or not when she was thinking about conceiving mouthwash fourth alcohol content. In regards to trauma, the patient is not reporting any significant history of trauma. She reports no history of physical or sexual abuse. She denies any history of emotional neglect. PAST PSYCHIATRIC HISTORY: Patient has a history of depression, anxiety, and al cohol use disorder. And has been on numerous psychotropic medications including Wellbutrin, Celexa, Zoloft, BuSpar, Cymbalta, Trileptal, and Seroquel. She was most recently on a regimen of Paxil 10 mg daily prior to this admission. The patient has had 3 inpatient psychiatric admissions in the past for depression and anxiety in the context of heavy alcohol use. The patient reports no current outpatient psychiatric follow-up. The patient reports no prior attempts at suicide in the past. PAST MEDICAL HISTORY: Past Medical History: No Reported History Additional Past Medical History / Comment(s): ETOH abuse. History of Any Multi-Drug Resistant Organisms: None Reported Past Surgical History: No Surgical Hx Reported Additional Past Surgical History / Comment(s): D/C, colonoscopy, septal surgery Past Anesthesia/Blood Transfusion Reactions: No Reported Reaction Past Psychological History: Anxiety, Depression Smoking Status: Former smoker Past Alcohol Use History: Abuse, Daily, Heavy Past Drug Use History: None Reported ALLERGIES: NO KNOWN DRUG ALLERGIES. CHEMICAL DEPENDENCY HISTORY: Patient reports that she has been drinking up to 2 pints of liquor per day for the past week. Aside from alcohol, the patient does not endorse any tobacco or illicit drug use. FAMILY PSYCHIATRIC/SUBSTANCE USE HISTORY: The patient's mother and father were both alcoholics. She reports that her mother has significant history of anxiety. SOCIAL HISTORY: Patient is currently for 36 years with her . She has 3 adult children. She is currently employed and works at an [employer] in [facility]. She lives in [place] with her . She denies any legal issues, service, or scientologist affiliation. MENTAL STATUS EXAM: General Appearance: Patient appears to be stated age is alert, pleasant, and cooperative. Patient appears to have fair hygiene and grooming wearing hospital gown with fair eye contact. Behavior: Patient is calmly lying in bed without any agitated behavior. Speech: Patient's speech is fluent and nonpressured. Mood/Affect: Patient reports their mood is "anxious", affect is congruent but constricted in range Suicidality/Homicidality: Patient denies having any suicidal or homicidal ideation intent or plan. Perceptions: Patient denies any visual hallucinations and denies any auditory hallucinations Though content/process: There is no evidence of any delusional thought content and thought process is linear and goal-directed. Memory and concentration: AOX3, grossly intact for the purposes of this session. 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 Agree with Valium for management of alcohol withdrawal. -At this time patient DOES NOT meet criteria for inpatient psychiatric admission. -Would recommend the following medication changes/additions: We will start Prozac 30 mg by mouth daily for management of depression/anxiety/panic disorder We will start gabapentin 300 mg by mouth 3 times a day for off label use for anxiety and alcohol use disorder. -The risks, benefits, and treatment alternatives were discussed with the patient in detail. Patient verbally consented to the medications. -Discontinue one-to-one sitter -Recommend social work consult to provide patient with 3 sources for outpatient substance abuse counseling as well as to set up outpatient psychiatric follow- up. -Psychiatry will continue to follow the patient while she is currently admitted. Otherwise, the patient is psychiatrically cleared for discharge. 07/13/21 14:03
[2021-07-13 14:06] LABS: Urine Alcohol Positive (Negative)
[2021-07-13] MEDS: SODIUM CHLORIDE 0.9% 1,000 ML IV SCH (15:29)
--- NOTE | 2021-07-13 16:55 | P.PN ---
Progress Note - Text Progress Note Date: 07/13/21 Chief Complaint: Excess alcohol intake This is a 60-year-old patient who follows Dr. Stephanie Stock. Patient long- standing history of drinking alcohol. She is also going to [place] in the past. Some short periods of being sober. But basically has been drinking a lcohol for a protracted period. She drinks called boys and also does walk up. She now presents to the ER feeling that she might kill herself. Drinking alcohol. Feels a little depressed and low. Does not eat too well. Is somewhat constipated as she does not eat well. Appetite is not good. Tired rundown. Has a history of bipolar 1. Patient's somewhat drowsy. When able to give some history. July 13: Feeling better. Did get of the bathroom. Did eat breakfast and lunch. Seen by psychiatry. Put on Prozac. Sitter discontinued. Discussed length with the patient about options when leaving from here. Patient is agreeable to take naltrexone. Also talked about disulfiram. She was to get over the [place] break with family. Cutback Valium to 1 mg 3 times a day. DC Ativan. Review of systems: Was done for constitutional, cardiovascular, GI, pulmonary. relevant finding as above Active Medications Acetaminophen (Acetaminophen Tab 325 Mg Tab) 650 mg PO Q6HR PRN PRN Reason: Mild Pain or Fever > 100.5 Calcium Carbonate/Glycine (Calcium Carbonate 500 Mg Chewable) 1,000 mg PO Q4HR PRN PRN Reason: Dyspepsia Diazepam (Diazepam 2 Mg Tab) 2 mg PO TID [facility] Last Admin: 07/13/21 15:34 Dose: 2 mg Documented by: Enoxaparin Sodium (Enoxaparin 40 Mg/0.4 Ml Syringe) 40 mg SQ DAILY [facility] Last Admin: 07/13/21 08:05 Dose: 40 mg Documented by: Fluoxetine HCl (Fluoxetine Hcl 10 Mg Cap) 30 mg PO DAILY [facility] Gabapentin (Gabapentin 300 Mg Cap) 300 mg PO TID [facility] Sodium Chloride (Saline 0.9%) 1,000 mls @ 20 mls/hr IV .Q24H [facility] Last Admin: 07/13/21 15:29 Dose: Not Given Documented by: Dextrose/Sodium Chloride (Dextrose 5%-1/2ns Iv Soln) 1,000 mls @ 125 mls/hr IV .Q8H [facility] Last Admin: 07/13/21 15:34 Dose: 125 mls/hr Documented by: Lactulose (Lactulose 20 Gm/30 Ml Cup) 20 gm PO DAILY PRN PRN Reason: Constipation Lorazepam (Lorazepam 2 Mg/Ml Inj) 1 mg IV Q2HR PRN PRN Reason: CIWA 8 or 9 Last Admin: 07/13/21 10:19 Dose: 1 mg Documented by: Lorazepam (Lorazepam 2 Mg/Ml Inj) 1 mg IV Q1HR PRN PRN Reason: CIWA 10 to 15 Last Admin: 07/12/21 16:54 Dose: 1 mg Documented by: Lorazepam (Lorazepam 2 Mg/Ml Inj) 2 mg IV Q10M PRN PRN Reason: CIWA 16 or higher Stop: 07/14/21 12:31 Metoprolol Tartrate (Metoprolol Tartrate 12.5 Mg Tab) 12.5 mg PO TID [facility] Last Admin: 07/13/21 15:34 Dose: 12.5 mg Documented by: Naloxone HCl (Naloxone 0.4 Mg/Ml 1 Ml Vial) 0.2 mg IV Q2M PRN PRN Reason: Opioid Reversal Patient's Own ( Progesterone, Micronized [ Progesterone] 200 Mg Capsule) 200 mg PO HS [facility] Last Admin: 07/12/21 22:19 Dose: Not Given Documented by: Paroxetine HCl (Paroxetine 20 Mg Tab) 20 mg PO DAILY [facility] Last Admin: 07/13/21 08:05 Dose: 20 mg Documented by: Thiamine HCl (Thiamine 100 Mg Tab) 100 mg PO BID-W/MEALS [facility] Last Admin: 07/13/21 08:04 Dose: 100 mg Documented by: Social history: . Patient smoked for about 40 years about 15 years ago. 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 Family history: Father had stroke Physical examination: VITAL SIGNS: 98.1, 85, 16, 160/91, 98% room air GENERAL: Laying in bed, more awake spider nevi. EYES: Pupils equal. Conjunctiva normal. HEENT: External appearance of nose and ears normal, oral cavity grossly normal. NECK: JVD not raised; masses not palpable. HEART: First and second heart sounds are normal; no edema. LUNGS: Respiratory rate normal; decreased sounds. ABDOMEN: Soft, nontender, liver spleen not palpable, no masses palpable. PSYCH: Answering questions appropriately.. INVESTIGATIONS, reviewed in the clinical context: White count 9.7 hemoglobin 14.9 platelets 425 sodium 136 potassium 4.3 BUN 19 creatinine 0.68 blood glucose 138 Serum osmolality 332 AST 39 ALT 30 Salicylates less than 1 acetaminophen less than 10 serum alcohol 179 Coronavirus [PCR]: Noninfected EKG tracing personally reviewed by me-sinus rhythm. Rate 102 Assessment and plan: -Acute alcohol intoxication Patient has a sitter: Discontinued -Alcohol use disorder On thiamine -Early alcohol withdrawal: Improving Decrease Valium 1 mg 3 times a day. CIWA scale. -Bipolar 1 with severe depression Psychiatry consulted. Sitter discontinued. Prozac 30 mg daily. -Alcoholic hepatitis Follow-up with GI outpatient Cutback Valium to 1 mg 3 times a day. DC Ativan. Lengthy discussion with the patient following discharge. Patient agreeable to take naltrexone. DC IV fluids. discharged tomorrow..
[2021-07-13 19:52] VITALS: TEMP 97.9
[2021-07-13] MEDS: GABAPENTIN 300 MG CAP PO SCH (22:22)
[2021-07-13] MEDS: PROGESTERONE MICRONIZED 200 MG PO SCH (22:24)
[2021-07-13 22:32] LABS: Urine Barbiturate Negative (Negative); Urine Cocaine Negative (Negative); Urine Methadone Negative (Negative); Urine Opiates Negative (Negative)
[2021-07-14 01:19] LABS: Urine Phencyclidine Negative (Negative)
[2021-07-14 05:19] VITALS: BP 142/81; PULSE 77
[2021-07-14] MEDS: GABAPENTIN 300 MG CAP PO SCH (09:00)
[2021-07-14] MEDS: THIAMINE 100 MG TAB PO SCH (09:00)
[2021-07-14] MEDS ORDERED: FLUoxetine HCL 10 MG CAP PO SCH (09:00)
[2021-07-14] MEDS: METOPROLOL TARTRATE 12.5 MG TAB PO SCH (09:00)
[2021-07-14] MEDS: ENOXAPARIN 40 MG/0.4 ML SYRINGE SQ SCH (09:01)
[2021-07-14] MEDS: diazePAM 2 MG TAB PO SCH (09:01)
[2021-07-14] MEDS: PARoxetine 20 MG TAB PO SCH (12:36)
--- NOTE | 2021-07-14 13:57 | P.PN ---
Progress Note - Text Progress Note Date: 07/14/21 Interval History: Patient was seen resting in bed and was directable and agreeable to speak with the newswriter. The patient is reporting she is feeling better today. She is tolerating the medication changes well and is agreeable to starting naltrexone. She is currently not reporting any suicidal or homicidal ideation, intention, and/or plan. She is not reporting any auditory or visual hallucinations. She denies any paranoia or delusions. At this time patient denies any suicidal or homical ideations, intent or plan. Patient denies any auditory, visual hallucinations and denies any paranoia or delusions. Patient denies any side effects from the medications and has been compliant with meds. Mental Status Exam: General Appearance: Patient appears to be stated age is alert, directable, and cooperative. Behavior: Patient is calmly lying down in bed without any agitated behavior Speech: Patient's speech is fluent and nonpressured. Mood/Affect: Mood is feeling better, affect is within normal range and appears to be euthymic today. Suicidality/Homicidality: Patient denies having any suicidal or homicidal ideation intent or plan. Perceptions: Patient denies any visual hallucinations and denies any auditory hallucinations Though content/process: There is no evidence of any delusional thought content and thought process is linear and goal-directed. Memory and concentration: AOX3, grossly intact for the purposes of this session Judgment and insight: Improved Vital Signs Temp 97.9 F 07/14/21 05:00 Pulse 77 07/14/21 05:00 Resp 16 07/14/21 05:00 BP 142/81 07/14/21 05:00 Pulse Ox 97 07/14/21 05:00 Intake & Output 07/13/21 07/14/21 07/14/21 18:59 06:59 18:59 Other: Voiding Method Toilet Toilet Toilet # Voids 5 2 Laboratory Results - Last 24 Hours 07/12/21 12:27 Urine Opiates Screen Negative Urine Methadone Screen Negative Ur Propoxyphene Screen Negative Urine Barbiturates Negative Ur Phencyclidine Scrn Negative Ur Amphetamine Screen Negative U Benzodiazepines Scrn Negative Urine Cocaine Screen Negative U Cannabinoids Screen Negative Urine Alcohol Positive A Assessment Alcohol use disorder Panic disorder 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 -Would recommend the following medication changes/additions: Continue Prozac 30 mg by mouth daily for management of depression/anxiety/panic disorder Continue gabapentin 300 mg by mouth 3 times a day for off label use for anxiety and alcohol use disorder. Patient agreeable to starting naltrexone upon discharge. -The risks, benefits, and treatment alternatives were discussed with the patient in detail. Patient verbally consented to the medications. -Psychiatry will sign off at this time. Recommend outpatient psychiatric and substance abuse counseling follow-up. Thank you for this consult.
--- NOTE | 2021-07-14 17:33 | P.DS ---
Providers Date of admission: 07/12/21 14:21 Expected date of discharge: 07/14/21 Attending physician: Franky Moffett Consults: 07/12/21 14:22 Consult Physician Routine Consulting Provider: Bg Funk Consult Reason/Comments: depression, suicidal Do you want consulting provider notified?: Yes Primary care physician: Stephanie Stock [facility] Course: Chief Complaint: Excess alcohol intake This is a 60-year-old patient who follows Dr. Stephanie Stock. Patient long- standing history of drinking alcohol. She is also going to [place] in the past. Some short periods of being sober. But basically has been drinking alcohol for a protracted period. She drinks called boys and also does walk up. She now presents to the ER feeling that she might kill herself. Drinking alcohol. Feels a little depressed and low. Does not eat too well. Is somewhat constipated as she does not eat well. Appetite is not good. Tired rundown. Has a history of bipolar 1. Patient's somewhat drowsy. When able to give some history. July 13: Feeling better. Did get of the bathroom. Did eat breakfast and lunch. Seen by psychiatry. Put on Prozac. Sitter discontinued. Discussed length with the patient about options when leaving from here. Patient is agreeable to take naltrexone. Also talked about disulfiram. She was to get over the [place] break with family. Cutback Valium to 1 mg 3 times a day. DC Ativan. Today: Patient doing much better. We'll discharge him naltrexone. This was discussed. Patient was counseled length. Neurontin discontinued. Paxil has been discontinued. Continue with Prozac. Also discussed mind fullness Discussion and discharge planning more than 35 minutes Consultation: Dr. Funk from psychiatry Social history: . Patient smoked for about 40 years about 15 years ago. 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 Family history: Father had stroke Physical examination: VITAL SIGNS: 97.9, 77, 16, 142/81, 77% room air GENERAL: Sitting up, comfortable spider nevi. EYES: Pupils equal. Conjunctiva normal. HEENT: External appearance of nose and ears normal, oral cavity grossly normal. NECK: JVD not raised; masses not palpable. HEART: First and second heart sounds are normal; no edema. LUNGS: Respiratory rate normal; decreased sounds. ABDOMEN: Soft, nontender, liver spleen not palpable, no masses palpable. PSYCH: Answering questions appropriately.. INVESTIGATIONS, reviewed in the clinical context: White count 9.7 hemoglobin 14.9 platelets 425 sodium 136 potassium 4.3 BUN 19 creatinine 0.68 blood glucose 138 Serum osmolality 332 AST 39 ALT 30 Salicylates less than 1 acetaminophen less than 10 serum alcohol 179 Coronavirus [PCR]: Noninfected EKG tracing personally reviewed by me-sinus rhythm. Rate 102 Assessment and plan: -Acute alcohol intoxication -Alcohol use disorder On thiamine. Discharged on naltrexone 100 mg daily -Early alcohol withdrawal: -Essential hypertension Lopressor 25 mg twice a day -Bipolar [address] Funk Prozac 30 mg daily. -Alcoholic hepatitis Follow-up with GI outpatient Disposition: Home Patient Condition at Discharge: Fair Plan - Discharge Summary New Discharge Prescriptions: New Naltrexone HCl [Revia] 100 mg PO DAILY #60 tablet Metoprolol Tartrate [Lopressor] 25 mg PO BID #60 tablet FLUoxetine HCL [PROzac] 30 mg PO DAILY #90 cap Thiamine [Vitamin B-1] 100 mg PO BID-W/MEALS #60 tab Continue Progesterone, Micronized [Progesterone] 200 mg PO HS Discontinued PARoxetine [Paxil] 20 mg PO DAILY Discharge Medication List Progesterone, Micronized [Progesterone] 200 mg PO HS 07/12/21 [History] FLUoxetine HCL [PROzac] 30 mg PO DAILY #90 cap 07/14/21 [Rx] Metoprolol Tartrate [Lopressor] 25 mg PO BID #60 tablet 07/14/21 [Rx] Naltrexone HCl [Revia] 100 mg PO DAILY #60 tablet 07/14/21 [Rx] Thiamine [Vitamin B-1] 100 mg PO BID-W/MEALS #60 tab 07/14/21 [Rx] Follow up Appointment(s)/Referral(s): Stephanie Stock MD [Primary Care Provider] - 1-2 days Patient Instructions/Handouts: Depression (DC), Alcohol Intoxication (DC), Abuse of Alcohol (DC)
== END 2021-07-14 14:34 | disposition home or self-care (01) | DRG 897 ==
LOC: EC 11:25 → 5NMEDONC 14:21
PROVIDERS: ADMIT Hospitalist; ATTEND Hospitalist
PROC: HZ2ZZZZ Detoxification Services for Substance Abuse Treatment (ICD-10-PCS; principal; 2021-07-12)
DX: F10.239 Alcohol dependence with withdrawal, unspecified (principal); R45.851 Suicidal ideations; F10.229 Alcohol dependence with intoxication, unspecified; Z71.41 Alcohol abuse counseling and surveillance of alcoholic; K70.10 Alcoholic hepatitis without ascites; D72.829 Elevated white blood cell count, unspecified; Z20.822 Contact with and (suspected) exposure to COVID-19; F41.0 Panic disorder [episodic paroxysmal anxiety]; F41.9 Anxiety disorder, unspecified; F31.9 Bipolar disorder, unspecified; I10 Essential (primary) hypertension; K59.00 Constipation, unspecified; Y90.6 Blood alcohol level of 120-199 mg/100 ml; Z79.899 Other long term (current) drug therapy; Z87.891 Personal history of nicotine dependence; Z81.1 Family history of alcohol abuse and dependence
CPT/HCPCS: 36415; 80053; 80143; 80179; 80306; 80320; 82075; 83930; 85025; 87635; 93005; 96372; 99285

== ENCOUNTER 2021-07-30 10:29 | Emergency (ER) | payer BC ==
[2021-07-30 10:46] VITALS: RESP 18; TEMP 97.5
[2021-07-30] MEDS ORDERED: LORazepam 2 MG/ML INJ IV STA ×2 (10:58→15:33)
[2021-07-30] MEDS ORDERED: SODIUM CHLORIDE 0.9% 1,000 ML IV ONE (10:58)
[2021-07-30] MEDS ORDERED: SODIUM CHLORIDE 0.9% 500 ML 500 ML IV ONE (10:58)
--- NOTE | 2021-07-30 11:34 | ED ---
General Adult HPI - General Chief complaint: Alcohol Stated complaint: alcohol poisoning Time Seen by Provider: 07/30/21 10:40 Source: patient, RN notes reviewed, old records reviewed Mode of arrival: wheelchair Limitations: no limitations - History of Present Illness Initial comments: This is a 60-year-old female presents emergency department stating that she is feeling shaky and somewhat nauseated. Patient states she stopped drinking election watcher at 3 AM and then she started taking hands and tightness or with ethyl alcohol and mixing it with water and drinking that. Patient states she supposed to go to rehab tomorrow. states she was here last month for alcohol intoxication. Patient denies any headache patient denies any fever chills. P atient denies any abdominal pain. Patient states she is mildly nauseated. - Related Data Home Medications Medication Instructions Recorded Confirmed Progesterone, Micronized 200 mg PO HS 07/12/21 07/30/21 [Progesterone] Previous Rx's Medication Instructions Recorded Metoprolol Tartrate [Lopressor] 25 mg PO BID #60 tablet 07/14/21 Naltrexone HCl [Revia] 100 mg PO DAILY #60 tablet 07/14/21 Allergies Allergy/AdvReac Type Severity Reaction Status Date / Time fluoxetine [From Prozac] AdvReac Unknown Verified 07/30/21 14:21 Review of Systems ROS Statement: Those systems with pertinent positive or pertinent negative responses have been documented in the HPI. ROS Other: All systems not noted in ROS Statement are negative. Past Medical History Past Medical History: No Reported History Additional Past Medical History / Comment(s): ETOH abuse. History of Any Multi-Drug Resistant Organisms: None Reported Past Surgical History: No Surgical Hx Reported Additional Past Surgical History / Comment(s): D/C, colonoscopy, septal surgery Past Anesthesia/Blood Transfusion Reactions: No Reported Reaction Past Psychological History: Depression Smoking Status: Former smoker Past Alcohol Use History: Abuse, Daily, Heavy Past Drug Use History: None Reported - Past Family History Father Family Medical History: CVA/TIA Additional Family Medical History / Comment(s): Father of septicemia at the age of 69yrs. He had had a CVA and then had complications from that. Mother Family Medical History: No Reported History Additional Family Medical History / Comment(s): Mother is healthy and is 81 yrs old. General Exam - General Exam Comments Initial Comments: GENERAL: Patient is well-developed and well-nourished. Patient is nontoxic and well-hydrated and is in no acute distress. ENT: Neck is soft and supple. No significant lymphadenopathy is noted. Oropharynx is clear. Moist mucous membranes. Neck has full range of motion without eliciting any pain. EYES: The sclera were anicteric and conjunctiva were pink and moist. Extraocular movements were intact and pupils were equal round and reactive to light. Eyelids were unremarkable. PULMONARY: Unlabored respirations. Good breath sounds bilaterally. No audible rales rhonchi or wheezing was noted. CARDIOVASCULAR: There is a regular rate and rhythm without any murmurs gallops or rubs. ABDOMEN: Soft and nontender with normal bowel sounds. SKIN: Skin is clear with no lesions or rashes and otherwise unremarkable. NEUROLOGIC: Patient is alert and oriented x3. Cranial nerves II through XII are grossly intact. Motor and sensory are also intact. Normal speech, volume and content. Symmetrical smile. MUSCULOSKELETAL: Normal extremities with adequate strength and full range of motion. LYMPHATICS: No significant lymphadenopathy is noted PSYCHIATRIC: Normal psychiatric evaluation. Limitations: no limitations Course Vital Signs 07/30/21 10:42 Temperature 97.5 F L Pulse Rate 117 H Respiratory 18 Rate Blood Pressure 159/96 O2 Sat by Pulse 96 Oximetry Medical Decision Making - Medical Decision Making EKG shows sinus tachycardia 110 bpm LA interval is on 130 QRS is 86 QT interval 324 QTC is 438. Patient's EKG shows no ST segment elevation or depression. EPS evaluated the patient and gave outpatient follow-up information to the . Patient does have an appointment tomorrow to go to rehab for alcohol - Lab Data Result diagrams: 07/30/21 11:40 07/30/21 11:39 Lab Results 07/30/21 07/30/21 07/30/21 Range/Units 11:39 11:39 11:40 WBC 7.9 (3.8-10.6) k/uL RBC 4.21 (3.80-5.40) m/uL Hgb 14.3 (11.4-16.0) gm/dL Hct 42.4 (34.0-46.0) % MCV 100.7 H (80.0-100.0) fL MCH 33.9 (25.0-35.0) pg MCHC 33.7 (31.0-37.0) g/dL RDW 13.5 (11.5-15.5) % Plt Count 251 (150-450) k/uL MPV 7.1 Neutrophils % 87 % Lymphocytes % 8 % Monocytes % 4 % Eosinophils % 0 % Basophils % 1 % Neutrophils # 6.9 (1.3-7.7) k/uL Lymphocytes # 0.6 L (1.0-4.8) k/uL Monocytes # 0.3 (0-1.0) k/uL Eosinophils # 0.0 (0-0.7) k/uL Basophils # 0.0 (0-0.2) k/uL Macrocytosis Slight Sodium 136 L (137-145) mmol/L Potassium 3.8 (3.5-5.1) mmol/L Chloride 95 L (98-107) mmol/L Carbon Dioxide 21 L (22-30) mmol/L Anion Gap 20 mmol/L BUN 13 (7-17) mg/dL Creatinine 0.60 (0.52-1.04) mg/dL Est GFR (CKD-EPI)AfAm >90 (>60 ml/min/1.73 sqM) Est GFR (CKD-EPI)NonAf >90 (>60 ml/min/1.73 sqM) Glucose 124 H (74-99) mg/dL Calcium 9.3 (8.4-10.2) mg/dL Magnesium 1.8 (1.6-2.3) mg/dL Total Bilirubin 0.6 (0.2-1.3) mg/dL AST 101 H (14-36) U/L ALT 82 H (4-34) U/L Alkaline Phosphatase 142 H (38-126) U/L Ammonia <9 (<30) umol/L Total Protein 7.8 (6.3-8.2) g/dL Albumin 4.6 (3.5-5.0) g/dL Serum Alcohol 129 mg/dL Disposition Clinical Impression: Alcoholic intoxication, Alcohol abuse Disposition: HOME SELF-CARE Instructions (If sedation given, give patient instructions): Alcohol Intoxication (ED) Is patient prescribed a controlled substance at d/c from ED?: No Referrals: Stephanie Stock MD [Primary Care Provider] - 1-2 days Time of Disposition: 15:32
[2021-07-30 11:47] LABS: Basophils % (A) 1 %; Eosinophils % (A) 0 %; HCT 42.4 % (34.0-46.0); HGB 14.3 gm/dL (11.4-16.0); Lymphocytes # (A) 0.6 k/uL (1.0-4.8); Lymphocytes % (A) 8 %; MCH 33.9 pg (25.0-35.0); MCHC 33.7 g/dL (31.0-37.0); MCV 100.7 fL (80.0-100.0); Macrocytosis Slight; Mean Platelet Volume 7.1; Monocytes # (A) 0.3 k/uL (0-1.0); Monocytes % (A) 4 %; Neutrophils # (A) 6.9 k/uL (1.3-7.7); Neutrophils % (A) 87 %; Platelet Count 251 k/uL (150-450); RBC 4.21 m/uL (3.80-5.40); RDW 13.5 % (11.5-15.5); WBC 7.9 k/uL (3.8-10.6)
[2021-07-30 11:59] LABS: ALT 82 U/L (4-34); AST 101 U/L (14-36); African American GFR (CKD) >90 (>60 ml/min/1.73 sqM); Albumin 4.6 g/dL (3.5-5.0); Alkaline Phosphatase 142 U/L (38-126); Anion Gap 20 mmol/L; Blood Urea Nitrogen 13 mg/dL (7-17); Calcium 9.3 mg/dL (8.4-10.2); Carbon Dioxide 21 mmol/L (22-30); Chloride 95 mmol/L (98-107); Glucose 124 mg/dL (74-99); Magnesium 1.8 mg/dL (1.6-2.3); Non-African American GFR(CKD) >90 (>60 ml/min/1.73 sqM); Potassium 3.8 mmol/L (3.5-5.1); Sodium 136 mmol/L (137-145); Total Bilirubin 0.6 mg/dL (0.2-1.3); Total Protein 7.8 g/dL (6.3-8.2)
[2021-07-30 12:29] LABS: Alcohol 129 mg/dL
[2021-07-30] MEDS ORDERED: traZODone HCL 100 MG TAB PO ONE (15:37)
[2021-07-30 16:00] VITALS: BP 168/86; PULSE 108
== END 2021-07-30 16:01 | disposition home or self-care (01) ==
LOC: EC 10:29
DX: F10.129 Alcohol abuse with intoxication, unspecified (principal); F32.A Depression, unspecified; Z88.1 Allergy status to other antibiotic agents; Z87.891 Personal history of nicotine dependence; Y90.6 Blood alcohol level of 120-199 mg/100 ml
CPT/HCPCS: 99284; 96374; 96376; 96361 ×4; 36415; 80053; 82140; 83735; 85025; 80320; J2060; 93005